=== PATIENT | female | born 1945 | race African-American/Black ===

== ENCOUNTER 2017-10-20 11:28 | Inpatient (IN) | payer OTHER ==
[2017-10-20 12:12] VITALS: BMI 23.6
--- NOTE | 2017-10-20 12:50 | HP ---
COWS - Scale Resting Pulse: 1= IN 81-100 Sweatin=Flushed/Facial Moisture Restless Observation: 3= Extraneous Movement Pupil Size: 2= Moderately Dilated Bone or Joint Aches: 2= Severe Diffuse Aches Runny Nose/ Eye Tearin= Runny Nose/Eyes GI Upset > 30mins: 3= Vomiting/Diarrhea Tremor Observation: 2= Slight Tremor Visible Yawning Observation: 2= >3x During Session Anxiety or Irritability: 2=Irritable/Anxious Goose Flesh Skin: 0=Smooth Skin COWS Score: 21 CIWA Score - CIWA Score Nausea/Vomitin Muscle Tremors: 3 Anxiety: 3 Agitation: 3 Paroxysmal Sweats: 1-Minimal Palms Moist Orientation: 0-Oriented Tacttile Disturbances: 2-Mild Itch/Numbness/Burn Auditory Disturbances: 2-Mild Harshness/Frighten Visual Disturbances: 0-None Headache: 2-Mild CIWA-Ar Total Score: 19 Admission ROS [facility] - HPI Chief Complaint: I AM HERE TO STOP USING HEROIN,ALCOHOL,METHADONE AND OXYCODONE Allergies/Adverse Reactions: Allergies Allergy/AdvReac Type Severity Reaction Status Date / Time Sulfa (Sulfonamide Allergy Verified 10/20/17 12:45 Antibiotics) History of Present Illness: THIS 72 YEARS OLD FEMALE WITH HEROIN,MTD,OXYCODONE,AND ALCOHOL DEPENDENCE SEEKING DETOX,WITHDRAWAL SYMPTOM,LAST TREATMENT 2004 IN [place] HISTORY OF HTN,EMPHYSEMA,,NICOTINE DEPENDENCE,TYPE 2 DM DIET CONTROL HEPATITIS C TREATED WITH HARVONI IN 2016 ANXIETY,DEPRESSION,INSOMNIA LONGEST PERIOD OF SOBRIETY 4 YEARS Exam Limitations: No Limitations - Ebola screening Have you traveled outside of the country in the last 21 days: No Have you been sick,other than usual withdrawal symptoms: No - Review of Systems Constitutional: Chills, Loss of Appetite, Malaise, Night Sweats, Changes in sleep, Weakness, Unintentional Wgt. Loss EENT: reports: Hearing Loss, Nose Congestion Respiratory: reports: No Symptoms reported (EMPHYSEMA), Other Cardiac: reports: No Symptoms Reported GI: reports: Diarrhea, Nausea, Vomiting, Abdominal cramping : reports: No Symptoms Reported Musculoskeletal: reports: Back Pain, Joint Pain, Muscle Pain Integumentary: reports: Dryness Neuro: reports: Headache, Tremors Endocrine: reports: No Symptoms Reported Hematology: reports: No Symptoms Reported Psychiatric: reports: Anxious, Depressed (INSOMNIA) Patient History - Patient Medical History Hx Anemia: No Hx Asthma: No Hx Chronic Obstructive Pulmonary Disease (COPD): Yes (ON ALBUTEROL INHALER) Hx Cancer: No Hx Cardiac Disorders: No Hx Congestive Heart Failure: No Hx Hypertension: Yes (ON MED) Hx Hypercholesterolemia: Yes (ON LIPITOR) Hx Pacemaker: No HX Cerebrovascular Accident: No Hx Seizures: No Hx Dementia: No Hx Diabetes: Yes (ON DIET CONTROL) Hx Gastrointestinal Disorders: No Hx Liver Disease: Yes (HEPATITIS C TREATED) Hx Genitourinary Disorders: No Hx Sexually Transmitted Disorders: No Hx Renal Disease (ESRD): No Hx Thyroid Disease: No Hx Human Immunodeficiency Virus (HIV): No (LAST 2014 NEGATIVE) Hx Hepatitis C: Yes (TREATED WITH HARVONI 2015) Hx Depression: Yes (ANXIETY.INSOMNIA) Hx Suicide Attempt: No Hx Bipolar Disorder: No Hx Schizophrenia: No Other Medical History: NO SUICIDAL,NO HOMICIDAL - Patient Surgical History Other Surgical History: SURGERY OF MILES 3 YEARS AGO - PPD History Previous Implant?: Yes Documented Results: Positive w/o proof PPD to be Administered?: No - Reproductive History Patient is a Female of Child Bearing Age (11 -55 yrs old): No Patient : No - Smoking Cessation Smoking history: Current every day smoker Have you smoked in the past 12 months: Yes Aproximately how many cigarettes per day: 10 Hx Chewing Tobacco Use: No Initiated information on smoking cessation: Yes 'Breaking Loose' booklet given: 10/20/17 - Substance & Tx. History Hx Alcohol Use: Yes Hx Substance Use: Yes Substance Use Type: Alcohol, Heroin, Opiates Hx Substance Use Treatment: Yes (2014) - Substances Abused Heroin Route: Inhalation Frequency: Daily Amount used: 4 BAGS Age of first use: 27 Date of Last Use: 10/19/17 Alcohol Route: Oral Frequency: Daily Amount used: 2 GLASSES OF WINE/4 OF 40 OZS OF BEER Age of first use: 27 Date of Last Use: 10/19/17 METHADONE Route: Oral Frequency: 1-2 times per week Amount used: 30 MGS Age of first use: 71 Date of Last Use: 10/19/17 OXYCODINE Route: Oral Frequency: 1-2 times per week OXYCODONE Route: Oral Frequency: 1-2 times per week Age of first use: 69 Date of Last Use: 10/18/17 Family Disease History - Family Disease History Family History: Denies Family Disease History: Other: Father (), Mother () Admission Physical Exam [facility] - Vital Signs Vital Signs: Vital Signs - 24 hr 10/20/17 12:07 Temperature 98.5 F Pulse Rate 91 H Respiratory 20 Rate Blood Pressure 136/82 - Physical General Appearance: Yes: Moderate Distress, Tremorous, Irritable, Sweating, Anxious HEENTM: Yes: Normal ENT Inspection, ASHER, Pharynx Normal Respiratory: Yes: Within Normal Limits, Lungs Clear, Normal Breath Sounds Neck: Yes: Within Normal Limits, Supple, Trachea in good position Breast: Yes: Breast Exam Deferred Cardiology: Yes: Within Normal Limits, Regular Rhythm, Regular Rate, S1, S2 Abdominal: Yes: Within Normal Limits, Normal Bowel Sounds, Non Tender, Flat, Soft Genitourinary: Yes: Within Normal Limits Back: Yes: Muscle Spasm Musculoskeletal: Yes: Back pain, Joint Stiffness, Muscle Pain Extremities: Yes: Within Normal Limits, Tremors 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: Yes: Within Normal Limits, travel insurance agent II-XII NML intact, Fully Oriented, Alert, Motor Strength 5/5 Integumentary: Yes: Dry Lymphatic: Yes: Within Normal Limits - Diagnostic (1) Opioid dependence with withdrawal Current Visit: Yes Status: Acute (2) Alcohol dependence with uncomplicated withdrawal Current Visit: Yes Status: Acute (3) Emphysema lung Current Visit: Yes Status: Acute (4) Low back pain potentially associated with spinal stenosis Current Visit: Yes Status: Acute (5) Nicotine dependence Current Visit: Yes Status: Acute (6) Insomnia secondary to depression with anxiety Current Visit: Yes Status: Acute (7) DM2 (diabetes mellitus, type 2) Current Visit: Yes Status: Acute (8) Hypercholesterolemia Current Visit: Yes Status: Acute Cleared for Admission [facility] - Detox or Rehab [facility] Level of Care: Medically Managed Detox Regimen/Protocol: Methadone/Librium [facility] Breath Alcohol Content Breath Alcohol Content: 0 Urine Pregancy Test - Result Urine Test Results: Negative- NO Line Present Urine Drug Screen - Results Drug Screen Negative: No Urine Drug Screen Results: OPI-Opiates, MTD-Methadone, OXY-Oxycodone
[2017-10-20] MEDS ORDERED: hydrOXYzine PAMOATE 25 MG CAPSULE (FP) PO PRN (13:25)
[2017-10-20] MEDS ORDERED: P-EPHED 60MG/TRIPROLIDI 2.5MG TABLET PO PRN (13:25)
[2017-10-20] MEDS ORDERED: LOPERAMIDE HCL 2 MG CAPSULE PO PRN (13:25)
[2017-10-20] MEDS ORDERED: METHADONE HCL 10 MG TABLET (FOR DETOX USE ONLY) PO ONE ×2 (13:25→23:00)
[2017-10-20] MEDS ORDERED: MAG HYDROX/AL HYDROX/SIMETH 30 ML UNIT-DOSE CUP PO PRN (13:25)
[2017-10-20] MEDS ORDERED: guaiFENesin/D-METHORPHAN HB 10 ML UNIT-DOSE CUPS PO PRN (13:25)
[2017-10-20] MEDS ORDERED: chlordiazePOXIDE HCL 25 MG CAPSULE PO ONE (13:25)
[2017-10-20] MEDS ORDERED: chlordiazePOXIDE HCL 25 MG CAPSULE PO PRN (13:25)
[2017-10-20] MEDS ORDERED: IBUPROFEN 400 MG TABLET (FP) PO PRN (13:25)
[2017-10-20] MEDS ORDERED: ACETAMINOPHEN 325 MG TABLET (FP) PO PRN (13:25)
[2017-10-20] MEDS ORDERED: MAGNESIUM HYDROX 2400MG/30ML ORAL SUSPENSION 30 ML CUP PO PRN (13:25)
[2017-10-20] MEDS ORDERED: MAGNESIUM CITRATE 300 ML BOTTLE PO PRN (13:25)
[2017-10-20] MEDS ORDERED: MENTHOL/PHENOL 1 EACH UD MM PRN (13:25)
[2017-10-20] MEDS: NICOTINE 14 MG/24 HOURS TOPICAL PATCH TD SCH (15:12)
[2017-10-20] MEDS: chlordiazePOXIDE HCL 25 MG CAPSULE PO SCH ×2 (17:27→22:14)
[2017-10-20 18:58] LABS: URINE APPEARANCE CLEAR; URINE BILIRUBIN NEGATIVE (NEGATIVE); URINE BLOOD 1+ (NEGATIVE); URINE COLOR LTYELLOW; URINE GLUCOSE (UA) NEGATIVE (NEGATIVE); URINE KETONE NEGATIVE (NEGATIVE); URINE LEUK ESTERASE TRACE (NEGATIVE); URINE NITRITE NEGATIVE (NEGATIVE); URINE PROTEIN NEGATIVE (NEGATIVE); URINE UROBILINOGEN NEGATIVE mg/dL (0.2-1.0)
[2017-10-20 19:07] LABS: EPI CELLS RARE /HPF (FEW)
[2017-10-20] MEDS: THIAMINE HCL 100 MG TABLET (FP) PO SCH (22:13)
[2017-10-20] MEDS: ATORVASTATIN CA 10 MG TABLET (FP) PO SCH (22:14)
[2017-10-21] MEDS: chlordiazePOXIDE HCL 25 MG CAPSULE PO SCH (05:13)
--- NOTE | 2017-10-21 07:43 | CONSULT ---
[facility] Psychiatric Consult - Data Date of interview: 10/21/17 Admission source: [facility] Identifying data: This is a 72 ariel sold female with no psychiatric hospitalizatin history looking for detox from Alcohol, Opioids. Substance Abuse History: - Smoking Cessation. Smoking history: Current every day smoker. Have you smoked in the past 12 months: Yes. Aproximately how many cigarettes per day: 10. Hx Chewing Tobacco Use: No. Initiated information on smoking cessation: Yes. 'Breaking Loose' booklet given: 10/20/17. - Substance & Tx. History. Hx Alcohol Use: Yes. Hx Substance Use: Yes. Substance Use Type : Alcohol, Heroin, Opiates. Hx Substance Use Treatment: Yes (2014). - Substances Abused. Heroin. Route: Inhalation. Frequency: Daily. Amount used: 4 BAGS. Age of first use: 27. Date of Last Use: 10/19/17. Alcohol. Route: Oral. Frequency: Daily. Amount used: 2 GLASSES OF WINE/4 OF 40 OZS OF BEER. Age of first use: 27. Date of Last Use: 10/19/17. METHADONE. Route : Oral. Frequency: 1-2 times per week. Amount used: 30 MGS. Age of first use : 71. Date of Last Use: 10/19/17. OXYCODONE. Route: Oral. Frequency: 1-2 times per week. Age of first use: 69. Date of Last Use: 10/18/17 Medical History: Emphysima history, DM-2, MMTP HISTORY Psychiatric History: Patioent reports no history of psychiatric admissions, no mediscations taking prior to admission as well. Physical/Sexual Abuse/Trauma History: Denies Additional Comment: Observation. Detox Unit Care Protocol Mental Status Exam - Mental Status Exam Alert and Oriented to: Person Cognitive Function: Fair Patient Appearance: Unkempt Mood: Sad Affect: Flat Patient Behavior: Sedated Speech Pattern: Delayed Voice Loudness: Mildly Soft/Quiet Thought Process: Circumstantial Thought Disorder: Being Controlled Hallucinations: Denies Suicidal Ideation: Denies Homicidal Ideation: Denies Insight/Judgement: Fair Sleep: Difficulty falling asleep Appetite: Fair Muscle strength/Tone: Mild Hypotonicity Gait/Station: Shuffling Additional Comments: Observation. Detox Unit Care Protocol Psychiatric Findings - Problem List ([place] 1, 2,3) (1) Drug-induced mood disorder Current Visit: Yes Status: Suspected (2) Alcohol dependence with uncomplicated withdrawal Current Visit: Yes Status: Acute (3) Insomnia secondary to depression with anxiety Current Visit: Yes Status: Acute (4) Nicotine dependence Current Visit: Yes Status: Acute (5) Opioid dependence with withdrawal Current Visit: Yes Status: Acute - Initial Treatment Plan Initial Treatment Plan: Observation. Detox Unit Care Protocol
--- NOTE | 2017-10-21 09:18 | PN ---
S CIWA - CIWA Score Nausea/Vomitin-Mild Nausea/No Vomiting Muscle Tremors: 4-Moderate,w/Arms Extend Anxiety: 4-Mod. Anxious/Guarded Agitation: 4-Moderately Restless Paroxysmal Sweats: 1-Minimal Palms Moist Orientation: 0-Oriented Tacttile Disturbances: 1-Very Mild Itch/Numbness Auditory Disturbances: 0-None Visual Disturbances: 0-None Headache: 1-Very Mild CIWA-Ar Total Score: 16 [facility] COWS - Scale Resting Pulse: 0= [place] 80 or Below Sweatin= Chills/Flushing Restless Observation: 3= Extraneous Movement Pupil Size: 1= Pupils >than Normal Bone or Joint Aches: 2= Severe Diffuse Aches Runny Nose/ Eye Tearin= Runny Nose/Eyes GI Upset > 30mins: 2= Nausea/Diarrhea Tremor Observation of Outstretched Hands: 2= Slight Tremor Visible Yawning Observation: 2= >3x During Session Anxiety or Irritability: 2=Irritable/Anxious Goose Flesh Skin: 0=Smooth Skin COWS Score: 17 [facility] Progress Note (SOAP) Subjective: joint ache sweat tremor anxiety GI upset librium gives sensation of nausea wants to begin valium Objective: 10/21/17 09:15 Vital Signs Temperature 97.7 F 10/21/17 06:27 Pulse Rate 63 10/21/17 06:27 Respiratory Rate 20 10/21/17 06:27 Blood Pressure 104/61 10/21/17 06:27 O2 Sat by Pulse Oximetry (%) Laboratory Last Values POC Glucometer 86 UNITS (80-120) 10/21/17 05:18 Urine Color Ltyellow 10/20/17 15:35 Urine Appearance Clear 10/20/17 15:35 Urine pH 6.0 (5.0-8.0) 10/20/17 15:35 Ur Specific [place] 1.010 (1.001-1.035) 10/20/17 15:35 Urine Protein Negative (NEGATIVE) 10/20/17 15:35 Urine Glucose (UA) Negative (NEGATIVE) 10/20/17 15:35 Urine Ketones Negative (NEGATIVE) 10/20/17 15:35 Urine Blood 1+ (NEGATIVE) H 10/20/17 15:35 Urine Nitrite Negative (NEGATIVE) 10/20/17 15:35 Urine Bilirubin Negative (NEGATIVE) 10/20/17 15:35 Urine Urobilinogen Negative mg/dL (0.2-1.0) 10/20/17 15:35 Ur Leukocyte Esterase Trace (NEGATIVE) 10/20/17 15:35 Urine WBC (Auto) 1 /hpf (3-5) 10/20/17 15:35 Urine RBC (Auto) 1 /hpf (0-3) 10/20/17 15:35 Ur Epithelial Cells Rare /HPF (FEW) 10/20/17 15:35 lab noted Assessment: 10/21/17 09:16 withdrawal sx possible discontinue librium Plan: continue detox begin valium regimen
[2017-10-21] MEDS ORDERED: PATIENT'S OWN MEDICATION (NON-FORMULARY) (Meloxicam 7.5 MG) PO SCH (10:00)
[2017-10-21] MEDS ORDERED: METHADONE HCL 10 MG TABLET (FOR DETOX USE ONLY) PO SCH (10:00)
[2017-10-21 10:15] LABS: HEMATOCRIT 41.3 % (32.4-45.2); HEMOGLOBIN 13.4 GM/dL (10.7-15.3); MCH 28.2 pg (25.7-33.7); MCHC 32.5 g/dl (32.0-36.0); MEAN CELL VOLUME 86.9 fl (80-96); MEAN PLT VOLUME 9.3 fl (7.5-11.1); PLATELET COUNT 156 K/MM3 (134-434); RBC 4.75 M/mm3 (3.60-5.2); RDW 15.6 % (11.6-15.6); WHITE BLOOD COUNT 2.8 K/mm3 (4.0-10.0)
[2017-10-21 10:18] LABS: CALCIUM 8.3 mg/dL (8.5-10.1); CHLORIDE 108 mmol/L (98-107); POTASSIUM 3.6 mmol/L (3.5-5.1); SODIUM 142 mmol/L (136-145)
[2017-10-21 10:23] LABS: ALBUMIN 3.2 g/dl (3.4-5.0); ALK PHOS 68 U/L (45-117); ANION GAP 5 (8-16); BILIRUBIN,TOTAL 0.3 mg/dL (0.2-1.0); BLOOD UREA NITROGEN 24 mg/dL (7-18); CO2 29 mmol/L (21-32); CREATININE 1.1 mg/dL (0.55-1.02); GLUCOSE,RANDOM 98 mg/dL (74-106); SGOT/AST 19 U/L (15-37); SGPT/ALT 20 U/L (12-78)
[2017-10-21] MEDS: METOPROLOL TARTRATE 25 MG TABLET (FP) PO SCH (10:29)
[2017-10-21] MEDS: HYDROCHLOROTHIAZIDE 25 MG TABLET (FP) PO SCH (10:29)
[2017-10-21] MEDS: PRENATAL VITAMINS W/ FOLIC ACID TABLET (FP) PO SCH (10:29)
[2017-10-21] MEDS: NICOTINE 14 MG/24 HOURS TOPICAL PATCH TD SCH (11:03)
[2017-10-21] MEDS: LIDOCAINE 5% TOPICAL PATCH TP SCH (11:03)
[2017-10-21] MEDS: diazePAM 5 MG TABLET PO PRN (11:39)
[2017-10-21] MEDS: diazePAM 5 MG TABLET PO SCH ×2 (13:56→22:04)
[2017-10-21] MEDS: PATIENT'S OWN MEDICATION (NON-FORMULARY) (Meloxicam 7.5 MG) PO SCH (14:18)
[2017-10-21] MEDS ORDERED: ALBUTEROL SO4 18 GM HFA INHALER IH SCH (16:00)
[2017-10-21] MEDS ORDERED: ALBUTEROL SO4 18 GM HFA INHALER IH PRN (16:22)
[2017-10-21] MEDS ORDERED: chlordiazePOXIDE HCL 25 MG CAPSULE PO SCH (17:00)
[2017-10-21] MEDS: THIAMINE HCL 100 MG TABLET (FP) PO SCH (22:03)
[2017-10-21] MEDS: BUDESONIDE/FORMETEROL FUMARATE 80/4.5 mcg INHALER IH SCH (22:03)
[2017-10-21] MEDS: ATORVASTATIN CA 10 MG TABLET (FP) PO SCH (22:04)
[2017-10-21] MEDS: LIDOCAINE PATCH REMOVAL MC SCH (22:04)
--- NOTE | 2017-10-21 23:34 | EKG ---
Test Reason : Blood Pressure : / mmHG Vent. Rate : 068 BPM Atrial Rate : 068 BPM P-R Int : 172 ms QRS Dur : 146 ms QT Int : 428 ms P-R-T Axes : 064 -16 -05 degrees QTc Int : 455 ms NORMAL SINUS RHYTHM RIGHT BUNDLE BRANCH BLOCK T WAVE ABNORMALITY, CONSIDER LATERAL ISCHEMIA ABNORMAL ECG NO PREVIOUS ECGS AVAILABLE Confirmed by FREDERIC ALTAMIRANO MD ([id number]) on 10/21/2017 11:33:29 PM Referred By: Confirmed By:FREDERIC ALTAMIRANO MD
[2017-10-22] MEDS: diazePAM 5 MG TABLET PO SCH ×4 (08:28→22:19)
--- NOTE | 2017-10-22 09:56 | PN ---
S CIWA - CIWA Score Nausea/Vomitin-Mild Nausea/No Vomiting Muscle Tremors: 4-Moderate,w/Arms Extend Anxiety: 4-Mod. Anxious/Guarded Agitation: 3 Paroxysmal Sweats: 1-Minimal Palms Moist Orientation: 0-Oriented Tacttile Disturbances: 0-None Auditory Disturbances: 0-None Visual Disturbances: 0-None Headache: 0-None Present CIWA-Ar Total Score: 13 [facility] COWS - Scale Resting Pulse: 0= [place] 80 or Below Sweatin= Chills/Flushing Restless Observation: 3= Extraneous Movement Pupil Size: 0= Normal to Room Light Bone or Joint Aches: 2= Severe Diffuse Aches Runny Nose/ Eye Tearin= Runny Nose/Eyes GI Upset > 30mins: 2= Nausea/Diarrhea Tremor Observation of Outstretched Hands: 2= Slight Tremor Visible Yawning Observation: 0= None Anxiety or Irritability: 2=Irritable/Anxious Goose Flesh Skin: 0=Smooth Skin COWS Score: 14 S Progress Note (SOAP) Subjective: joint aches tremor sweat anxiety restlessness irritability agitation Objective: 10/22/17 09:55 Vital Signs Temperature 97.7 F 10/22/17 06:24 Pulse Rate 65 10/22/17 06:24 Respiratory Rate 16 10/22/17 06:24 Blood Pressure 111/66 10/22/17 06:24 O2 Sat by Pulse Oximetry (%) Laboratory Last Values WBC 2.8 K/mm3 (4.0-10.0) L 10/21/17 07:00 RBC 4.75 M/mm3 (3.60-5.2) 10/21/17 07:00 Hgb 13.4 GM/dL (10.7-15.3) 10/21/17 07:00 Hct 41.3 % (32.4-45.2) 10/21/17 07:00 MCV 86.9 fl (80-96) 10/21/17 07:00 MCH 28.2 pg (25.7-33.7) 10/21/17 07:00 MCHC 32.5 g/dl (32.0-36.0) 10/21/17 07:00 RDW 15.6 % (11.6-15.6) 10/21/17 07:00 Plt Count 156 K/MM3 (134-434) 10/21/17 07:00 MPV 9.3 fl (7.5-11.1) 10/21/17 07:00 Sodium 142 mmol/L (136-145) 10/21/17 07:00 Potassium 3.6 mmol/L (3.5-5.1) 10/21/17 07:00 Chloride 108 mmol/L (98-107) H 10/21/17 07:00 Carbon Dioxide 29 mmol/L (21-32) 10/21/17 07:00 Anion Gap 5 (8-16) L 10/21/17 07:00 BUN 24 mg/dL (7-18) H 10/21/17 07:00 Creatinine 1.1 mg/dL (0.55-1.02) H 10/21/17 07:00 Creat Clearance w eGFR 49.10 (>60) 10/21/17 07:00 POC Glucometer 79 UNITS (80-120) 10/22/17 06:46 Random Glucose 98 mg/dL (74-106) 10/21/17 07:00 Calcium 8.3 mg/dL (8.5-10.1) L 10/21/17 07:00 Total Bilirubin 0.3 mg/dL (0.2-1.0) 10/21/17 07:00 AST 19 U/L (15-37) 10/21/17 07:00 ALT 20 U/L (12-78) 10/21/17 07:00 Alkaline Phosphatase 68 U/L (45-117) 10/21/17 07:00 Total Protein 7.0 g/dl (6.4-8.2) 10/21/17 07:00 Albumin 3.2 g/dl (3.4-5.0) L 10/21/17 07:00 Urine Color Ltyellow 10/20/17 15:35 Urine Appearance Clear 10/20/17 15:35 Urine pH 6.0 (5.0-8.0) 10/20/17 15:35 Ur Specific [place] 1.010 (1.001-1.035) 10/20/17 15:35 Urine Protein Negative (NEGATIVE) 10/20/17 15:35 Urine Glucose (UA) Negative (NEGATIVE) 10/20/17 15:35 Urine Ketones Negative (NEGATIVE) 10/20/17 15:35 Urine Blood 1+ (NEGATIVE) H 10/20/17 15:35 Urine Nitrite Negative (NEGATIVE) 10/20/17 15:35 Urine Bilirubin Negative (NEGATIVE) 10/20/17 15:35 Urine Urobilinogen Negative mg/dL (0.2-1.0) 10/20/17 15:35 Ur Leukocyte Esterase Trace (NEGATIVE) 10/20/17 15:35 Urine WBC (Auto) 1 /hpf (3-5) 10/20/17 15:35 Urine RBC (Auto) 1 /hpf (0-3) 10/20/17 15:35 Ur Epithelial Cells Rare /HPF (FEW) 10/20/17 15:35 RPR Titer Nonreactive (NONREACTIVE) 10/21/17 07:00 lab noted Assessment: 10/22/17 09:55 withdrawal sx Plan: continue detox
[2017-10-22] MEDS: METOPROLOL TARTRATE 25 MG TABLET (FP) PO SCH (10:54)
[2017-10-22] MEDS: METHOCARBAMOL 500 MG TABLET PO PRN (10:54)
[2017-10-22] MEDS: PRENATAL VITAMINS W/ FOLIC ACID TABLET (FP) PO SCH (10:54)
[2017-10-22] MEDS: METHADONE HCL 5 MG TABLET (FOR DETOX USE ONLY) PO SCH (10:54)
[2017-10-22] MEDS: BUDESONIDE/FORMETEROL FUMARATE 80/4.5 mcg INHALER IH SCH ×2 (10:54→22:18)
[2017-10-22] MEDS: HYDROCHLOROTHIAZIDE 25 MG TABLET (FP) PO SCH (10:54)
[2017-10-22] MEDS: PATIENT'S OWN MEDICATION (NON-FORMULARY) (Meloxicam 7.5 MG) PO SCH (10:56)
[2017-10-22] MEDS: NICOTINE 14 MG/24 HOURS TOPICAL PATCH TD SCH (10:59)
[2017-10-22] MEDS: LIDOCAINE 5% TOPICAL PATCH TP SCH (11:00)
[2017-10-22] MEDS ORDERED: chlordiazePOXIDE 5 MG CAPSULE PO SCH (17:00)
[2017-10-22] MEDS: diazePAM 5 MG TABLET PO PRN (20:03)
[2017-10-22] MEDS: LIDOCAINE PATCH REMOVAL MC SCH (22:18)
[2017-10-22] MEDS: THIAMINE HCL 100 MG TABLET (FP) PO SCH (22:19)
[2017-10-22] MEDS: ATORVASTATIN CA 10 MG TABLET (FP) PO SCH (22:19)
[2017-10-22] MEDS ORDERED: ONDANSETRON *ODT* 4 MG TABLET SL PRN (22:25)
[2017-10-22] MEDS ORDERED: METOPROLOL TARTRATE 25 MG TABLET (FP) PO ONE (22:30)
--- NOTE | 2017-10-22 22:30 | PN ---
S Progress Note Note: Patient c/o nausea and hx of GERD. Reports out patient takes nexium 20mg qd. Patient medically stable, in no acute distress, ambulating. Orders Zofran and Protonix continue to monitor
[2017-10-22] MEDS: PANTOPRAZOLE 20 MG TABLET (FP) PO SCH (22:48)
[2017-10-23] MEDS: BUDESONIDE/FORMETEROL FUMARATE 80/4.5 mcg INHALER IH SCH ×2 (10:23→22:24)
[2017-10-23] MEDS: PRENATAL VITAMINS W/ FOLIC ACID TABLET (FP) PO SCH (10:23)
[2017-10-23] MEDS: PANTOPRAZOLE 20 MG TABLET (FP) PO SCH (10:24)
[2017-10-23] MEDS: METOPROLOL TARTRATE 25 MG TABLET (FP) PO SCH (10:24)
[2017-10-23] MEDS: diazePAM 5 MG TABLET PO SCH ×2 (10:24→22:25)
[2017-10-23] MEDS: LIDOCAINE 5% TOPICAL PATCH TP SCH (10:24)
[2017-10-23] MEDS: METHADONE HCL 5 MG TABLET (FOR DETOX USE ONLY) PO SCH (10:24)
[2017-10-23] MEDS: HYDROCHLOROTHIAZIDE 25 MG TABLET (FP) PO SCH (10:24)
[2017-10-23] MEDS: NICOTINE 14 MG/24 HOURS TOPICAL PATCH TD SCH (10:25)
[2017-10-23] MEDS: PATIENT'S OWN MEDICATION (NON-FORMULARY) (Meloxicam 7.5 MG) PO SCH (10:25)
--- NOTE | 2017-10-23 12:30 | PN ---
[facility] Progress Note (SOAP) Subjective: GI distress joint aches sweat irritable anxiety Objective: 10/23/17 12:29 Vital Signs Temperature 97.9 F 10/23/17 10:30 Pulse Rate 79 10/23/17 10:30 Respiratory Rate 18 10/23/17 10:30 Blood Pressure 145/83 10/23/17 10:30 O2 Sat by Pulse Oximetry (%) Laboratory Last Values WBC 2.8 K/mm3 (4.0-10.0) L 10/21/17 07:00 RBC 4.75 M/mm3 (3.60-5.2) 10/21/17 07:00 Hgb 13.4 GM/dL (10.7-15.3) 10/21/17 07:00 Hct 41.3 % (32.4-45.2) 10/21/17 07:00 MCV 86.9 fl (80-96) 10/21/17 07:00 MCH 28.2 pg (25.7-33.7) 10/21/17 07:00 MCHC 32.5 g/dl (32.0-36.0) 10/21/17 07:00 RDW 15.6 % (11.6-15.6) 10/21/17 07:00 Plt Count 156 K/MM3 (134-434) 10/21/17 07:00 MPV 9.3 fl (7.5-11.1) 10/21/17 07:00 Sodium 142 mmol/L (136-145) 10/21/17 07:00 Potassium 3.6 mmol/L (3.5-5.1) 10/21/17 07:00 Chloride 108 mmol/L (98-107) H 10/21/17 07:00 Carbon Dioxide 29 mmol/L (21-32) 10/21/17 07:00 Anion Gap 5 (8-16) L 10/21/17 07:00 BUN 24 mg/dL (7-18) H 10/21/17 07:00 Creatinine 1.1 mg/dL (0.55-1.02) H 10/21/17 07:00 Creat Clearance w eGFR 49.10 (>60) 10/21/17 07:00 POC Glucometer 82 UNITS (80-120) 10/23/17 05:58 Random Glucose 98 mg/dL (74-106) 10/21/17 07:00 Calcium 8.3 mg/dL (8.5-10.1) L 10/21/17 07:00 Total Bilirubin 0.3 mg/dL (0.2-1.0) 10/21/17 07:00 AST 19 U/L (15-37) 10/21/17 07:00 ALT 20 U/L (12-78) 10/21/17 07:00 Alkaline Phosphatase 68 U/L (45-117) 10/21/17 07:00 Total Protein 7.0 g/dl (6.4-8.2) 10/21/17 07:00 Albumin 3.2 g/dl (3.4-5.0) L 10/21/17 07:00 Urine Color Ltyellow 10/20/17 15:35 Urine Appearance Clear 10/20/17 15:35 Urine pH 6.0 (5.0-8.0) 10/20/17 15:35 Ur Specific [place] 1.010 (1.001-1.035) 10/20/17 15:35 Urine Protein Negative (NEGATIVE) 10/20/17 15:35 Urine Glucose (UA) Negative (NEGATIVE) 10/20/17 15:35 Urine Ketones Negative (NEGATIVE) 10/20/17 15:35 Urine Blood 1+ (NEGATIVE) H 10/20/17 15:35 Urine Nitrite Negative (NEGATIVE) 10/20/17 15:35 Urine Bilirubin Negative (NEGATIVE) 10/20/17 15:35 Urine Urobilinogen Negative mg/dL (0.2-1.0) 10/20/17 15:35 Ur Leukocyte Esterase Trace (NEGATIVE) 10/20/17 15:35 Urine WBC (Auto) 1 /hpf (3-5) 10/20/17 15:35 Urine RBC (Auto) 1 /hpf (0-3) 10/20/17 15:35 Ur Epithelial Cells Rare /HPF (FEW) 10/20/17 15:35 RPR Titer Nonreactive (NONREACTIVE) 10/21/17 07:00 lab noted Assessment: 10/23/17 12:30 withdrawal sx Plan: continue detox
[2017-10-23] MEDS: METHOCARBAMOL 500 MG TABLET PO PRN ×2 (14:44→22:25)
[2017-10-23] MEDS ORDERED: chlordiazePOXIDE HCL 10 MG CAPSULE PO SCH (17:00)
[2017-10-23] MEDS: diazePAM 5 MG TABLET PO PRN (19:28)
[2017-10-23] MEDS: ATORVASTATIN CA 10 MG TABLET (FP) PO SCH (22:24)
[2017-10-23] MEDS: LIDOCAINE PATCH REMOVAL MC SCH (22:24)
[2017-10-23] MEDS: THIAMINE HCL 100 MG TABLET (FP) PO SCH (22:25)
[2017-10-23] MEDS ORDERED: IBUPROFEN 400 MG TABLET (FP) PO PRN (22:25)
--- NOTE | 2017-10-23 22:31 | PN ---
S Progress Note (SOAP) Subjective: " I have back pain and will like some oxy for my pain" Objective: 10/23/17 22:27 Vital Signs Temperature 98.3 F 10/23/17 18:36 Pulse Rate 80 10/23/17 18:36 Respiratory Rate 20 02 18:36 Blood Pressure 103/65 10/23/17 18:36 O2 Sat by Pulse Oximetry (%) Laboratory Last Values WBC 2.8 K/mm3 (4.0-10.0) L 10/21/17 07:00 RBC 4.75 M/mm3 (3.60-5.2) 10/21/17 07:00 Hgb 13.4 GM/dL (10.7-15.3) 10/21/17 07:00 Hct 41.3 % (32.4-45.2) 10/21/17 07:00 MCV 86.9 fl (80-96) 10/21/17 07:00 MCH 28.2 pg (25.7-33.7) 10/21/17 07:00 MCHC 32.5 g/dl (32.0-36.0) 10/21/17 07:00 RDW 15.6 % (11.6-15.6) 10/21/17 07:00 Plt Count 156 K/MM3 (134-434) 10/21/17 07:00 MPV 9.3 fl (7.5-11.1) 10/21/17 07:00 Sodium 142 mmol/L (136-145) 10/21/17 07:00 Potassium 3.6 mmol/L (3.5-5.1) 10/21/17 07:00 Chloride 108 mmol/L (98-107) H 10/21/17 07:00 Carbon Dioxide 29 mmol/L (21-32) 10/21/17 07:00 Anion Gap 5 (8-16) L 10/21/17 07:00 BUN 24 mg/dL (7-18) H 10/21/17 07:00 Creatinine 1.1 mg/dL (0.55-1.02) H 10/21/17 07:00 Creat Clearance w eGFR 49.10 (>60) 10/21/17 07:00 POC Glucometer 107 UNITS (80-120) 10/23/17 16:30 Random Glucose 98 mg/dL (74-106) 10/21/17 07:00 Calcium 8.3 mg/dL (8.5-10.1) L 10/21/17 07:00 Total Bilirubin 0.3 mg/dL (0.2-1.0) 10/21/17 07:00 AST 19 U/L (15-37) 10/21/17 07:00 ALT 20 U/L (12-78) 10/21/17 07:00 Alkaline Phosphatase 68 U/L (45-117) 10/21/17 07:00 Total Protein 7.0 g/dl (6.4-8.2) 10/21/17 07:00 Albumin 3.2 g/dl (3.4-5.0) L 10/21/17 07:00 Urine Color Ltyellow 10/20/17 15:35 Urine Appearance Clear 10/20/17 15:35 Urine pH 6.0 (5.0-8.0) 10/20/17 15:35 Ur Specific [place] 1.010 (1.001-1.035) 10/20/17 15:35 Urine Protein Negative (NEGATIVE) 10/20/17 15:35 Urine Glucose (UA) Negative (NEGATIVE) 10/20/17 15:35 Urine Ketones Negative (NEGATIVE) 10/20/17 15:35 Urine Blood 1+ (NEGATIVE) H 10/20/17 15:35 Urine Nitrite Negative (NEGATIVE) 10/20/17 15:35 Urine Bilirubin Negative (NEGATIVE) 10/20/17 15:35 Urine Urobilinogen Negative mg/dL (0.2-1.0) 10/20/17 15:35 Ur Leukocyte Esterase Trace (NEGATIVE) 10/20/17 15:35 Urine WBC (Auto) 1 /hpf (3-5) 10/20/17 15:35 Urine RBC (Auto) 1 /hpf (0-3) 10/20/17 15:35 Ur Epithelial Cells Rare /HPF (FEW) 10/20/17 15:35 RPR Titer Nonreactive (NONREACTIVE) 10/21/17 07:00 Patient evaluated at the bedside Patient AOx3, in no apparent distress Ambulating without any deficits Negative neuro symptoms Assessment: 10/23/17 22:29 lumbago Plan: Continue detox Ibuprofen 400mg q6h repeat U/A Continue to monitor
[2017-10-24] MEDS: METHOCARBAMOL 500 MG TABLET PO PRN ×2 (03:02→20:06)
--- NOTE | 2017-10-24 09:33 | PN ---
[facility] Progress Note (SOAP) Subjective: report feeling better, alert oriented x3 no sweat less tremor joint aches Objective: 10/24/17 09:32 Vital Signs Temperature 96.3 F L 10/24/17 06:00 Pulse Rate 90 10/24/17 06:00 Respiratory Rate 20 10/24/17 06:00 Blood Pressure 153/93 10/24/17 06:00 O2 Sat by Pulse Oximetry (%) vital signs 134/79, 78 16 96.5 10/24/17 09:32 Laboratory Last Values WBC 2.8 K/mm3 (4.0-10.0) L 10/21/17 07:00 RBC 4.75 M/mm3 (3.60-5.2) 10/21/17 07:00 Hgb 13.4 GM/dL (10.7-15.3) 10/21/17 07:00 Hct 41.3 % (32.4-45.2) 10/21/17 07:00 MCV 86.9 fl (80-96) 10/21/17 07:00 MCH 28.2 pg (25.7-33.7) 10/21/17 07:00 MCHC 32.5 g/dl (32.0-36.0) 10/21/17 07:00 RDW 15.6 % (11.6-15.6) 10/21/17 07:00 Plt Count 156 K/MM3 (134-434) 10/21/17 07:00 MPV 9.3 fl (7.5-11.1) 10/21/17 07:00 Sodium 142 mmol/L (136-145) 10/21/17 07:00 Potassium 3.6 mmol/L (3.5-5.1) 10/21/17 07:00 Chloride 108 mmol/L (98-107) H 10/21/17 07:00 Carbon Dioxide 29 mmol/L (21-32) 10/21/17 07:00 Anion Gap 5 (8-16) L 10/21/17 07:00 BUN 24 mg/dL (7-18) H 10/21/17 07:00 Creatinine 1.1 mg/dL (0.55-1.02) H 10/21/17 07:00 Creat Clearance w eGFR 49.10 (>60) 10/21/17 07:00 POC Glucometer 83 UNITS (80-120) 10/24/17 06:29 Random Glucose 98 mg/dL (74-106) 10/21/17 07:00 Calcium 8.3 mg/dL (8.5-10.1) L 10/21/17 07:00 Total Bilirubin 0.3 mg/dL (0.2-1.0) 10/21/17 07:00 AST 19 U/L (15-37) 10/21/17 07:00 ALT 20 U/L (12-78) 10/21/17 07:00 Alkaline Phosphatase 68 U/L (45-117) 10/21/17 07:00 Total Protein 7.0 g/dl (6.4-8.2) 10/21/17 07:00 Albumin 3.2 g/dl (3.4-5.0) L 10/21/17 07:00 Urine Color Ltyellow 10/20/17 15:35 Urine Appearance Clear 10/20/17 15:35 Urine pH 6.0 (5.0-8.0) 10/20/17 15:35 Ur Specific [place] 1.010 (1.001-1.035) 10/20/17 15:35 Urine Protein Negative (NEGATIVE) 10/20/17 15:35 Urine Glucose (UA) Negative (NEGATIVE) 10/20/17 15:35 Urine Ketones Negative (NEGATIVE) 10/20/17 15:35 Urine Blood 1+ (NEGATIVE) H 10/20/17 15:35 Urine Nitrite Negative (NEGATIVE) 10/20/17 15:35 Urine Bilirubin Negative (NEGATIVE) 10/20/17 15:35 Urine Urobilinogen Negative mg/dL (0.2-1.0) 10/20/17 15:35 Ur Leukocyte Esterase Trace (NEGATIVE) 10/20/17 15:35 Urine WBC (Auto) 1 /hpf (3-5) 10/20/17 15:35 Urine RBC (Auto) 1 /hpf (0-3) 10/20/17 15:35 Ur Epithelial Cells Rare /HPF (FEW) 10/20/17 15:35 RPR Titer Nonreactive (NONREACTIVE) 10/21/17 07:00 lab noted Assessment: 10/24/17 09:32 mild withdrawal sx Plan: medically supervised detox
[2017-10-24] MEDS ORDERED: METHADONE HCL 10 MG TABLET (FOR DETOX USE ONLY) PO SCH (10:00)
[2017-10-24] MEDS ORDERED: PATIENT'S OWN MEDICATION (NON-FORMULARY) (Meloxicam [Mobic] 7.5 MG) PO SCH (10:00)
[2017-10-24] MEDS: PRENATAL VITAMINS W/ FOLIC ACID TABLET (FP) PO SCH (10:12)
[2017-10-24] MEDS: HYDROCHLOROTHIAZIDE 25 MG TABLET (FP) PO SCH (10:12)
[2017-10-24] MEDS: PANTOPRAZOLE 20 MG TABLET (FP) PO SCH (10:12)
[2017-10-24] MEDS: METOPROLOL TARTRATE 25 MG TABLET (FP) PO SCH (10:12)
[2017-10-24] MEDS: LIDOCAINE 5% TOPICAL PATCH TP SCH (10:13)
[2017-10-24] MEDS: BUDESONIDE/FORMETEROL FUMARATE 80/4.5 mcg INHALER IH SCH ×2 (10:13→22:12)
[2017-10-24] MEDS: diazePAM 5 MG TABLET PO SCH ×2 (10:13→22:12)
[2017-10-24] MEDS: NICOTINE 14 MG/24 HOURS TOPICAL PATCH TD SCH (10:14)
[2017-10-24 14:21] LABS: URINE APPEARANCE CLEAR; URINE BILIRUBIN NEGATIVE (NEGATIVE); URINE BLOOD NEGATIVE (NEGATIVE); URINE COLOR YELLOW; URINE GLUCOSE (UA) NEGATIVE (NEGATIVE); URINE KETONE NEGATIVE (NEGATIVE); URINE NITRITE NEGATIVE (NEGATIVE); URINE PROTEIN NEGATIVE (NEGATIVE); URINE UROBILINOGEN NEGATIVE mg/dL (0.2-1.0)
[2017-10-24 14:29] LABS: URINE LEUK ESTERASE 3+ (NEGATIVE)
[2017-10-24 14:32] LABS: EPI CELLS RARE /HPF (FEW); URINE HYALINE CAST 1 /lpf; URINE MUCUS RARE
[2017-10-24] MEDS: THIAMINE HCL 100 MG TABLET (FP) PO SCH (22:11)
[2017-10-24] MEDS: ATORVASTATIN CA 10 MG TABLET (FP) PO SCH (22:11)
[2017-10-24] MEDS: LIDOCAINE PATCH REMOVAL MC SCH (23:11)
[2017-10-25] MEDS ORDERED: METHADONE HCL 5 MG TABLET (FOR DETOX USE ONLY) PO SCH (06:00)
[2017-10-25 06:29] VITALS: BP 148/97; PULSE 71; TEMP 97.5
--- NOTE | 2017-10-25 09:39 | DS ---
[facility] Detox Discharge Summary Admission Date: 10/20/17 Discharge Date: 10/25/17 - History Present History: Alcohol Dependence, Opioid Dependence - Physical Exam Results Vital Signs: Vital Signs Temperature 97.5 F L 10/25/17 06:00 Pulse Rate 71 10/25/17 06:00 Respiratory Rate 16 10/25/17 06:00 Blood Pressure 148/97 10/25/17 06:00 O2 Sat by Pulse Oximetry (%) - Treatment Hospital Course: Detox Protocol Followed, Detoxed Safely, Responded well, Discharged Condition Good, Rehab Referral Accepted - Medication Discharge Medications: Ambulatory Orders Atorvastatin Ca [Lipitor] 10 mg PO HS 10/20/17 Hydrochlorothiazide [Hctz -] 25 mg PO DAILY 10/20/17 Meloxicam [Mobic (Nf) -] 7.5 mg PO DAILY 10/20/17 Metoprolol Tartrate [Lopressor -] 25 mg PO DAILY 10/20/17 Albuterol Sulfate Inhaler - [Ventolin Hfa Inhaler -] 2 inh PO Q4H PRN 10/21/17 Pantoprazole Sodium [Protonix -] 40 mg PO DAILY 10/23/17 Meloxicam [Mobic] 7.5 mg PO DAILY 10/24/17 - Diagnosis (1) Alcohol dependence with uncomplicated withdrawal Current Visit: Yes Status: Chronic (2) DM2 (diabetes mellitus, type 2) Current Visit: Yes Status: Chronic Qualifiers: Diabetes mellitus complication status: without complication (3) Emphysema lung Current Visit: Yes Status: Acute (4) GERD (gastroesophageal reflux disease) Current Visit: Yes Status: Acute (5) Hypercholesterolemia Current Visit: Yes Status: Acute (6) Insomnia secondary to depression with anxiety Current Visit: Yes Status: Acute (7) Low back pain potentially associated with spinal stenosis Current Visit: Yes Status: Acute (8) Nicotine dependence Current Visit: Yes Status: Chronic Qualifiers: Nicotine product type: cigarettes Substance use status: uncomplicated Qualified Code(s): F17.210 - Nicotine dependence, cigarettes, uncomplicated (9) Opioid dependence with withdrawal Current Visit: Yes Status: Acute (10) Drug-induced mood disorder Current Visit: Yes Status: Suspected - AMA Did Patient Leave Against Medical Advice: No
[2017-10-25] MEDS: HYDROCHLOROTHIAZIDE 25 MG TABLET (FP) PO SCH (09:43)
[2017-10-25] MEDS: PANTOPRAZOLE 20 MG TABLET (FP) PO SCH (09:43)
[2017-10-25] MEDS: METOPROLOL TARTRATE 25 MG TABLET (FP) PO SCH (09:43)
[2017-10-25] MEDS: PRENATAL VITAMINS W/ FOLIC ACID TABLET (FP) PO SCH (09:43)
[2017-10-25] MEDS ORDERED: diazePAM 5 MG TABLET PO SCH (10:00)
== END 2017-10-25 10:20 | disposition home or self-care (01) | DRG 897 ==
LOC: YASAS 11:28 → Y6N 13:13
PROVIDERS: ADMIT Internal Medicine; ATTEND Internal Medicine
PROC: HZ2ZZZZ Detoxification Services for Substance Abuse Treatment (ICD-10-PCS; principal; 2017-10-20)
DX: F11.23 Opioid dependence with withdrawal (principal); F19.20 Other psychoactive substance dependence, uncomplicated; F19.282 Other psychoactive substance dependence with psychoactive substance-induced sleep disorder; F10.230 Alcohol dependence with withdrawal, uncomplicated; F17.210 Nicotine dependence, cigarettes, uncomplicated; F19.24 Other psychoactive substance dependence with psychoactive substance-induced mood disorder; J43.8 Other emphysema; G47.00 Insomnia, unspecified; E78.00 Pure hypercholesterolemia, unspecified; K21.9 Gastro-esophageal reflux disease without esophagitis
CPT/HCPCS: 36415; 71045-TC-FY; 80053; 81003; 81015; 82962; 85027; 86593; 93005; 93010

== ENCOUNTER 2019-01-24 18:40 | Inpatient (IN) | payer OTHER ==
--- NOTE | 2019-01-24 21:19 | HP ---
COWS - Scale Resting Pulse: 1= [place] 81-100 Sweatin=Flushed/Facial Moisture Restless Observation: 1= Difficult to Sit Still Pupil Size: 1= Pupils >than Normal Bone or Joint Aches: 1= Mild Discomfort Runny Nose/ Eye Tearin= Nasal Congestion GI Upset > 30mins: 2= Nausea/Diarrhea Tremor Observation: 2= Slight Tremor Visible Yawning Observation: 0= None Anxiety or Irritability: 1=Feels Anxious/Irritable Goose Flesh Skin: 0=Smooth Skin COWS Score: 12 CIWA Score Nausea/Vomitin Muscle Tremors: 2 Anxiety: 2 Agitation: 2 Paroxysmal Sweats: 2 Orientation: 0-Oriented Tacttile Disturbances: 2-Mild Itch/Numbness/Burn Auditory Disturbances: 2-Mild Harshness/Frighten Visual Disturbances: 2-Mild Sensitivity Headache: 2-Mild CIWA-Ar Total Score: 18 - Admission Criteria OASAS Guidelines: Admission for Medically Managed Detox: Requires at least one of the followin. CIWA greater than 12 2. Seizures within the past 24 hours 3. Delirium tremens within the past 24 hours 4. Hallucinations within the past 24 hours 5. Acute intervention needed for co occurring medical disorder 6. Acute intervention needed for co occurring psychiatric disorder 7. Severe withdrawal that cannot be handled at a lower level of care (continued vomiting, continued diarrhea, abnormal vital signs) requiring intravenous medication and/or fluids 8. Admission ROS S - HPI Chief Complaint: DEPENDENT ON HEROIN, ETOH, OXYCODONE AND COCAINE Allergies/Adverse Reactions: Allergies Allergy/AdvReac Type Severity Reaction Status Date / Time Sulfa (Sulfonamide Allergy Verified 10/20/17 12:45 Antibiotics) History of Present Illness: THE PT. IS REQUESTING ADMISSION TO THE DETOX UNIT AND CAME FOR MEDICAL CLEARANCE AND H AND PE Exam Limitations: No Limitations - Ebola screening Have you traveled outside of the country in the last 21 days: No Have you had contact with anyone from an Ebola affected area: No Have you been sick,other than usual withdrawal symptoms: No Do you have a fever: No - Review of Systems Constitutional: See HPI, Malaise, Weakness EENT: reports: See HPI Respiratory: reports: See HPI, SOB with Exertion, Wheezing Cardiac: reports: See HPI GI: reports: See HPI, Nausea, Abdominal cramping : reports: No Symptoms Reported, See HPI Musculoskeletal: reports: See HPI, Muscle Pain, Muscle Weakness Integumentary: reports: See HPI, Sweating Neuro: reports: See HPI, Headache, Tremors, Weakness Endocrine: reports: See HPI Hematology: reports: See HPI Psychiatric: reports: Judgement Intact, Orientated x3, Anxious, Depressed Patient History - Patient Medical History Hx Anemia: No Hx Asthma: No Hx Chronic Obstructive Pulmonary Disease (COPD): Yes (ON ALBUTEROL INHALER) Hx Cancer: No Hx Cardiac Disorders: No Hx Congestive Heart Failure: No Hx Hypertension: Yes (ON MED) Hx Hypercholesterolemia: Yes (ON LIPITOR) Hx Pacemaker: No HX Cerebrovascular Accident: No Hx Seizures: No Hx Dementia: No Hx Diabetes: Yes (ON DIET CONTROL) Hx Gastrointestinal Disorders: Yes (GERD) Hx Liver Disease: Yes (HEPATITIS C TREATED) Hx Genitourinary Disorders: No Hx Sexually Transmitted Disorders: No Hx Renal Disease (ESRD): No Hx Thyroid Disease: No Hx Human Immunodeficiency Virus (HIV): No (LAST 2014 NEGATIVE) Hx Hepatitis C: Yes (TREATED WITH HARVONI 2015) Hx Depression: Yes (ANXIETY.INSOMNIA) Hx Suicide Attempt: No Hx Bipolar Disorder: No Hx Schizophrenia: No - Patient Surgical History Past Surgical History: Yes Hx Neurologic Surgery: No Hx Cataract Extraction: No Hx Cardiac Surgery: No Hx Lung Surgery: No Hx Breast Surgery: No Hx Breast Biopsy: No Hx Abdominal Surgery: No Hx Appendectomy: No Hx Cholecystectomy: No Hx Genitourinary Surgery: No Hx Section: No Hx Orthopedic Surgery: No Other Surgical History: SURGERY OF MILES 3 YEARS AGO - Reproductive History Patient is a Female of Child Bearing Age (11 -55 yrs old): No LMP comment: LMP IN 1994 Patient : No - Smoking Cessation Smoking history: Current every day smoker Have you smoked in the past 12 months: Yes Aproximately how many cigarettes per day: 10 Hx Chewing Tobacco Use: No Initiated information on smoking cessation: Yes 'Breaking Loose' booklet given: 01/24/19 - Substances abused Heroin Substance route: Inhalation Frequency: Daily Amount used: 6 B/D Age of first use: 23 Date of last use: 01/24/19 Alcohol Substance route: Oral Frequency: Daily Amount used: BEER 2X6 PKS/D Age of first use: 23 Date of last use: 01/24/19 Cocaine Substance route: Inhalation Frequency: Daily Amount used: $20/D Age of first use: 23 Date of last use: 01/23/19 Oxycontin Other (specify): OXYCODONE Substance route: Oral Frequency: Daily Amount used: 30 MGS. Age of first use: 69 Date of last use: 01/24/19 Family Disease History - Family Disease History Family Disease History: Other: Father (), Mother () Admission Physical Exam S - Physical General Appearance: Yes: No Apparent Distress, Appropriately Dressed, Thin, Sweating, Anxious HEENTM: Yes: Hearing grossly Normal, Normocephalic, Normal Voice, ASHER, Pharynx Normal Respiratory: Yes: Chest Non-Tender, Lungs Clear, Normal Breath Sounds, No Respiratory Distress, No Accessory Muscle Use Neck: Yes: No masses,lesions,Nodules, Supple, Trachea in good position Breast: Yes: Breast Exam Deferred, Axillae without masses Cardiology: Yes: Regular Rhythm, S1, S2, Tachycardia Abdominal: Yes: Normal Bowel Sounds, Non Tender, Soft, Protuberent Back: Yes: Normal Inspection, Decreased Range of Motion Musculoskeletal: Yes: full range of Motion, Pelvis Stable, Muscle Pain, Muscle weakness Extremities: Yes: Normal Capillary Refill, Normal Range of Motion, Non-Tender, Tremors, Swelling 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: 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: 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 NML intact, Fully Oriented, Alert, Motor Strength 5/5, Normal Response Integumentary: Yes: Normal Color, Warm, Moist Lymphatic: Yes: Within Normal Limits - Diagnostic (1) HTN (hypertension) Current Visit: Yes Status: Acute Qualifiers: Hypertension type: essential hypertension Qualified Code(s): I10 - Essential (primary) hypertension (2) Opioid dependence Current Visit: Yes Status: Chronic Qualifiers: Substance use status: uncomplicated Qualified Code(s): F11.20 - Opioid dependence, uncomplicated (3) GERD (gastroesophageal reflux disease) Current Visit: No Status: Chronic Qualifiers: Esophagitis presence: esophagitis presence not specified Qualified Code(s) : K21.9 - Gastro-esophageal reflux disease without esophagitis (4) Hypercholesterolemia Current Visit: No Status: Chronic (5) Opioid dependence with withdrawal Current Visit: No Status: Chronic (6) Alcohol dependence with uncomplicated withdrawal Current Visit: No Status: Chronic (7) DM2 (diabetes mellitus, type 2) Current Visit: No Status: Chronic Qualifiers: Diabetes mellitus complication status: without complication (8) Nicotine dependence Current Visit: No Status: Chronic Qualifiers: Nicotine product type: cigarettes Substance use status: uncomplicated Qualified Code(s): F17.210 - Nicotine dependence, cigarettes, uncomplicated (9) Cocaine dependence Current Visit: Yes Status: Chronic Qualifiers: Substance use status: uncomplicated Qualified Code(s): F14.20 - Cocaine dependence, uncomplicated (10) Insomnia Current Visit: Yes Status: Chronic Qualifiers: Insomnia type: unspecified Qualified Code(s): G47.00 - Insomnia, unspecified (11) Anxiety and depression Current Visit: Yes Status: Chronic (12) Insomnia secondary to depression with anxiety Current Visit: No Status: Acute Cleared for Admission S - Detox or Rehab [facility] Level of Care: Medically Supervised Detox Regimen/Protocol: Methadone/Librium Breathalyzer - Breathalyzer Breathalyzer: 0 Urine Drug Screen - Test Device Lot number: [id number] Expiration date: 12/07/19 - Control Is test valid?: Yes - Results Drug screen NEGATIVE: No Urine drug screen results: MET-Methamphetamine, FEN-Fentanyl, MOP-Opiates, OXY- Oxycodone, MTD-Methadone Inpatient Rehab Admission - Rehab Decision to Admit Inpatient rehab admission?: No
[2019-01-24] MEDS ORDERED: MAGNESIUM CITRATE 300 ML BOTTLE PO PRN (21:31)
[2019-01-24] MEDS ORDERED: MAG HYDROX/AL HYDROX/SIMETH 30 ML UNIT-DOSE CUP PO PRN (21:31)
[2019-01-24] MEDS ORDERED: MAGNESIUM HYDROX 2400MG/30ML ORAL SUSPENSION 30 ML CUP PO PRN (21:31)
[2019-01-24] MEDS ORDERED: hydrOXYzine PAMOATE 25 MG CAPSULE (FP) PO PRN (21:31)
[2019-01-24] MEDS ORDERED: chlordiazePOXIDE HCL 25 MG CAPSULE PO ONE (21:31)
[2019-01-24] MEDS ORDERED: MENTHOL/PHENOL 1 EACH UD MM PRN (21:31)
[2019-01-24] MEDS ORDERED: chlordiazePOXIDE HCL 10 MG CAPSULE PO PRN (21:31)
[2019-01-24] MEDS ORDERED: MELATONIN 5 MG TABLETS PO PRN (21:31)
[2019-01-24] MEDS ORDERED: NICOTINE POLACRILEX 2 MG GUM BUC PRN (21:31)
[2019-01-24] MEDS ORDERED: IBUPROFEN 400 MG TABLET (FP) PO PRN (21:31)
[2019-01-24] MEDS ORDERED: METHADONE HCL 10 MG TABLET (FOR DETOX USE ONLY) PO ONE ×2 (21:31→23:00)
[2019-01-24] MEDS ORDERED: BISMUTH SUBSALICYLATE 524 MG/30 ML UD PO PRN (21:31)
[2019-01-24] MEDS ORDERED: ACETAMINOPHEN 325 MG TABLET (FP) PO PRN ×2 (21:31)
[2019-01-24] MEDS ORDERED: ALBUTEROL SO4 8 GM HFA INHALER IH PRN (21:35)
[2019-01-25 00:21] VITALS: BMI 22.8
[2019-01-25] MEDS: chlordiazePOXIDE HCL 25 MG CAPSULE PO SCH ×3 (00:59→13:30)
[2019-01-25] MEDS: THIAMINE HCL 100 MG TABLET (FP) PO SCH ×2 (01:34→22:07)
[2019-01-25] MEDS: METOPROLOL TARTRATE 25 MG TABLET (FP) PO SCH ×3 (01:34→11:08)
[2019-01-25] MEDS: RANITIDINE HCL 150 MG TABLET (FP) PO SCH ×4 (01:34→22:06)
[2019-01-25] MEDS: ATORVASTATIN CA 10 MG TABLET (FP) PO SCH ×2 (01:34→22:06)
[2019-01-25] MEDS: HYDROCHLOROTHIAZIDE 25 MG TABLET (FP) PO SCH ×3 (01:35→11:08)
[2019-01-25] MEDS ORDERED: chlordiazePOXIDE HCL 25 MG CAPSULE PO ONE (01:45)
[2019-01-25] MEDS ORDERED: METHADONE HCL 10 MG TABLET (FOR DETOX USE ONLY) PO ONE (01:45)
[2019-01-25] MEDS: METHOCARBAMOL 500 MG TABLET PO PRN ×2 (09:01→18:30)
[2019-01-25] MEDS ORDERED: METHADONE HCL 5 MG TABLET (FOR DETOX USE ONLY) PO ONE (10:00)
[2019-01-25 10:25] LABS: BILIRUBIN,TOTAL 0.4 mg/dL (0.2-1); CALCIUM 8.8 mg/dL (8.5-10.1); CREATININE 1.1 mg/dL (0.55-1.3); TOT PROT 6.9 g/dl (6.4-8.2)
[2019-01-25 10:27] LABS: HEMATOCRIT 33.6 % (32.4-45.2); HEMOGLOBIN 10.8 GM/dL (10.7-15.3); MCH 27.6 pg (25.7-33.7); MCHC 32.3 g/dl (32.0-36.0); MEAN CELL VOLUME 85.4 fl (80-96); PLATELET COUNT 184 K/MM3 (134-434); RBC 3.93 M/mm3 (3.60-5.2); RDW 17.3 % (11.6-15.6); WHITE BLOOD COUNT 3.3 K/mm3 (4.0-10.0)
--- NOTE | 2019-01-25 10:56 | CONSULT ---
[facility] Psychiatric Consult - Data Date of interview: 01/25/19 Admission source: [facility] Identifying data: Patient is a 73 y/o AA female single, mother of 2 unemployed, domiciled SSI recipient Substance Abuse History: Admitted to the unit for Heroin, Oxycodone and Cocaine dependence. She is marginally cooperative, looks sick, tearful, complains of withdrawal. Refer to addiction counselor note for detailed substance use history. Medical History: Records indicate that she has the following medcial problems: COPD, HTN, Hypercholesterolemia Type 2 DM, GERD, Hep C Psychiatric History: She denies prior contact with mental health healthcare consultant, no hospitalization or treatment. No sucide ideation. Feels depressed with sleep disruption Physical/Sexual Abuse/Trauma History: No information obtained Mental Status Exam - Mental Status Exam Alert and Oriented to: Person Cognitive Function: Fair Patient Appearance: Unkempt, Disheveled Mood: Apathetic, Depressed Affect: Mood Congruent Patient Behavior: Guarded, Distractible Speech Pattern: Delayed Voice Loudness: Moderately Soft/Quiet Thought Process: Loose Associations, Thought Blocking Thought Disorder: Not Present Hallucinations: Denies Suicidal Ideation: Denies Homicidal Ideation: Denies Insight/Judgement: Poor Sleep: Fair Appetite: Fair Muscle strength/Tone: Mild Hypotonicity Gait/Station: Normal Psychiatric Findings - Problem List ([place] 1, 2,3) (1) HTN (hypertension) Current Visit: Yes Status: Acute Qualifiers: Hypertension type: essential hypertension Qualified Code(s): I10 - Essential (primary) hypertension (2) Cocaine dependence Current Visit: Yes Status: Chronic Qualifiers: Substance use status: uncomplicated Qualified Code(s): F14.20 - Cocaine dependence, uncomplicated (3) Insomnia Current Visit: Yes Status: Chronic Qualifiers: Insomnia type: unspecified Qualified Code(s): G47.00 - Insomnia, unspecified (4) Opioid dependence Current Visit: Yes Status: Chronic Qualifiers: Substance use status: uncomplicated Qualified Code(s): F11.20 - Opioid dependence, uncomplicated (5) Emphysema lung Current Visit: No Status: Acute (6) Low back pain potentially associated with spinal stenosis Current Visit: No Status: Acute (7) Alcohol dependence with uncomplicated withdrawal Current Visit: No Status: Chronic (8) DM2 (diabetes mellitus, type 2) Current Visit: No Status: Chronic Qualifiers: Diabetes mellitus complication status: without complication (9) Hypercholesterolemia Current Visit: No Status: Chronic - Initial Treatment Plan Initial Treatment Plan: Continue in patient Deox treatment. Patient should be monitored for drug withdrawal symptoms. To be re-assessed by psych for an update mental staus examination when improved. Monitor response
[2019-01-25] MEDS: PRENATAL VITAMINS W/ FOLIC ACID TABLET (FP) PO SCH (11:08)
[2019-01-25] MEDS: NICOTINE 14 MG/24 HOURS TOPICAL PATCH TD SCH ×2 (11:09→11:15)
--- NOTE | 2019-01-25 12:49 | PN ---
[facility] CIWA - CIWA Score Nausea/Vomitin-Mild Nausea/No Vomiting Muscle Tremors: 3 Anxiety: 4-Mod. Anxious/Guarded Agitation: 4-Moderately Restless Paroxysmal Sweats: 3 Orientation: 0-Oriented Tacttile Disturbances: 0-None Auditory Disturbances: 0-None Visual Disturbances: 0-None Headache: 0-None Present CIWA-Ar Total Score: 15 [facility] COWS - Scale Resting Pulse: 0= [place] 80 or Below Sweatin= Chills/Flushing Restless Observation: 3= Extraneous Movement Pupil Size: 0= Normal to Room Light Bone or Joint Aches: 2= Severe Diffuse Aches Runny Nose/ Eye Tearin= None GI Upset > 30mins: 2= Nausea/Diarrhea Tremor Observation of Outstretched Hands: 2= Slight Tremor Visible Yawning Observation: 0= None Anxiety or Irritability: 1=Feels Anxious/Irritable Goose Flesh Skin: 0=Smooth Skin COWS Score: 11 [facility] Progress Note (SOAP) Subjective: Diarrhea, chills, anxious, muscle spasms Objective: 01/25/19 12:46 Last Vital Signs Temp Pulse Resp BP Pulse Ox 97.7 F 66 19 125/71 01/25/19 09:46 01/25/19 09:46 01/25/19 09:46 01/25/19 09:46 Laboratory Tests 01/25/19 01/25/19 01/25/19 07:50 07:50 07:50 WBC 3.3 L RBC 3.93 Hgb 10.8 Hct 33.6 D MCV 85.4 MCH 27.6 MCHC 32.3 RDW 17.3 H Plt Count 184 MPV 9.0 Sodium 141 Potassium 4.0 Chloride 106 Carbon Dioxide 29 Anion Gap 6 L BUN 28 H Creatinine 1.1 Est GFR (CKD-EPI)AfAm 58.50 Est GFR (CKD-EPI)NonAf 50.47 Random Glucose 101 Calcium 8.8 Total Bilirubin 0.4 AST 19 ALT 11 L Alkaline Phosphatase 62 Total Protein 6.9 Albumin 3.0 L RPR Titer Nonreactive Labs reviewed: bun 28 Assessment: 01/25/19 12:47 Withdrawal symptoms Noted with prerenal azotemia Plan: Continue detox Prerenal azotemia: encouraged PO water hydration Repeat BMP on 01/27/19
[2019-01-25] MEDS: NICOTINE 21 MG/24 HOURS TOPICAL PATCH TD SCH (18:25)
[2019-01-25] MEDS: cloNIDine HCL 0.1 MG TABLET PO PRN (18:30)
[2019-01-25] MEDS ORDERED: MACITENTAN PO SCH (18:34)
--- NOTE | 2019-01-25 20:58 | PN ---
[facility] Progress Note Note: Reviewed and updated patients medications.
[2019-01-25] MEDS ORDERED: HYDROCHLOROTHIAZIDE 25 MG TABLET (FP) PO SCH (21:00)
[2019-01-25] MEDS: chlordiazePOXIDE 5 MG CAPSULE PO SCH (22:05)
[2019-01-26] MEDS: METHOCARBAMOL 500 MG TABLET PO PRN ×2 (00:52→18:41)
[2019-01-26] MEDS: chlordiazePOXIDE 5 MG CAPSULE PO SCH ×2 (06:12→14:00)
[2019-01-26] MEDS ORDERED: METHADONE HCL 10 MG TABLET (FOR DETOX USE ONLY) PO ONE (10:00)
[2019-01-26] MEDS ORDERED: MACITENTAN PO SCH (10:00)
[2019-01-26] MEDS: RANITIDINE HCL 150 MG TABLET (FP) PO SCH ×2 (10:29→22:11)
[2019-01-26] MEDS: metoPROLOL SUCCINATE 25 MG TAB.SR.24H (FP) PO SCH (10:29)
[2019-01-26] MEDS: PRENATAL VITAMINS W/ FOLIC ACID TABLET (FP) PO SCH (10:29)
[2019-01-26] MEDS: HYDROCHLOROTHIAZIDE 25 MG TABLET (FP) PO SCH (10:30)
[2019-01-26] MEDS: NICOTINE 21 MG/24 HOURS TOPICAL PATCH TD SCH (11:00)
[2019-01-26] MEDS: NICOTINE 14 MG/24 HOURS TOPICAL PATCH TD SCH (11:00)
[2019-01-26] MEDS ORDERED: METHADONE HCL 5 MG TABLET (FOR DETOX USE ONLY) PO ONE (11:25)
[2019-01-26] MEDS ORDERED: diphenhydrAMINE HCL 50 MG CAPSULE PO ONE (11:25)
[2019-01-26] MEDS: TIOTROPIUM BROMIDE IH SCH (12:00)
--- NOTE | 2019-01-26 12:57 | PN ---
S CIWA - CIWA Score Nausea/Vomitin Muscle Tremors: 3 Anxiety: 4-Mod. Anxious/Guarded Agitation: 1-Slight > Activity Paroxysmal Sweats: No Perspiration Orientation: 0-Oriented Tacttile Disturbances: 0-None Auditory Disturbances: 0-None Visual Disturbances: 2-Mild Sensitivity Headache: 0-None Present CIWA-Ar Total Score: 13 [facility] COWS - Scale Resting Pulse: 0= [place] 80 or Below Sweatin= Chills/Flushing Restless Observation: 1= Difficult to Sit Still Pupil Size: 0= Normal to Room Light Bone or Joint Aches: 2= Severe Diffuse Aches Runny Nose/ Eye Tearin= None GI Upset > 30mins: 2= Nausea/Diarrhea Tremor Observation of Outstretched Hands: 2= Slight Tremor Visible Yawning Observation: 1= 1-2x During Session Anxiety or Irritability: 2=Irritable/Anxious Goose Flesh Skin: 0=Smooth Skin COWS Score: 11 S Progress Note (SOAP) Subjective: Anxiety, Interrupted Sleep, Diarrhea, Tremors, Nausea, Body Aches. Objective: PATIENT A & O X 3, OBSERVED AMBULATING ON UNIT UNASSISTED. IN NO ACUTE DISTRESS. 01/26/19 12:54 Vital Signs Temperature 97.0 F L 01/26/19 09:22 Pulse Rate 60 01/26/19 09:22 Respiratory Rate 18 01/26/19 09:22 Blood Pressure 123/67 01/26/19 09:22 O2 Sat by Pulse Oximetry (%) Laboratory Tests 01/24/19 01/25/19 01/25/19 20:48 07:50 07:50 WBC 3.3 L RBC 3.93 Hgb 10.8 Hct 33.6 D MCV 85.4 MCH 27.6 MCHC 32.3 RDW 17.3 H Plt Count 184 MPV 9.0 Sodium 141 Potassium 4.0 Chloride 106 Carbon Dioxide 29 Anion Gap 6 L BUN 28 H Creatinine 1.1 Est GFR (CKD-EPI)AfAm 58.50 Est GFR (CKD-EPI)NonAf 50.47 Random Glucose 101 Calcium 8.8 Total Bilirubin 0.4 AST 19 ALT 11 L Alkaline Phosphatase 62 Total Protein 6.9 Albumin 3.0 L POC Urine HCG, Qual Negative RPR Titer 01/25/19 07:50 WBC RBC Hgb Hct MCV MCH MCHC RDW Plt Count MPV Sodium Potassium Chloride Carbon Dioxide Anion Gap BUN Creatinine Est GFR (CKD-EPI)AfAm Est GFR (CKD-EPI)NonAf Random Glucose Calcium Total Bilirubin AST ALT Alkaline Phosphatase Total Protein Albumin POC Urine HCG, Qual RPR Titer Nonreactive LABS NOTED. 01/26/19 13:08 Assessment: 01/26/19 12:54 WITHDRAWAL SYMPTOMS. LEUKOPENIA. AZOTEMIA. 01/26/19 12:57 Plan: CONTINUE DETOX. INCREASE DAILY PO FLUID / WATER INTAKE. PATIENT REPORTS THAT SHE IS CURRENTLY EXPERIENCING CONSIDERABLE WITHDRAWAL SYMPTOMS. METHADONE DETOX PROTOCOL EXTENDED BY ONE DAY SO THAT PATIENT WILL BE DISCHARGED ON 01/28/2019. PATIENT BROUGHT BOTTLE OF OPSUMIT (MACETENTAN), USED FOR TREATMENT OF PULMONARY HYPERTENSION, WITH HER AT TIME OF ADMISSION. BOTTLE DID HAVE SHIP CONSTRUCTION TEACHER LABEL ON IT; HOWEVER, DID NOT HAVE PATIENT'S NAME OR IDENTIFYING INFORMATION ON IT. ACCORDING TO PATIENT, THIS MEDICATION WAS SHIPPED TO HER BY A COMPANY CALLED ' [employer]' . SHIPMENT OF MEDICATION TO PATIENT (LAST SHIPPED ON 01/20/2019) CONFIRMED BY 'DAMI' AT [employer]. MEDICATION BOTTLE APPEARS TO BE INTACT. MEDICATION SENT TO [facility] FOR VERIFICATION AND INSPECTION.
[2019-01-26] MEDS: MACITENTAN 10 MG PO SCH (15:47)
[2019-01-26] MEDS: cloNIDine HCL 0.1 MG TABLET PO PRN (18:41)
[2019-01-26] MEDS ORDERED: chlordiazePOXIDE HCL 10 MG CAPSULE PO PRN (21:00)
[2019-01-26] MEDS: THIAMINE HCL 100 MG TABLET (FP) PO SCH (22:09)
[2019-01-26] MEDS: chlordiazePOXIDE HCL 10 MG CAPSULE PO SCH (22:10)
[2019-01-26] MEDS: ATORVASTATIN CA 10 MG TABLET (FP) PO SCH (22:10)
[2019-01-26] MEDS: diphenhydrAMINE HCL 25 MG CAPSULE (FP) PO PRN (22:13)
[2019-01-27] MEDS: chlordiazePOXIDE HCL 10 MG CAPSULE PO SCH ×3 (05:40→22:26)
[2019-01-27] MEDS: diphenhydrAMINE HCL 25 MG CAPSULE (FP) PO PRN ×3 (05:54→23:21)
[2019-01-27] MEDS ORDERED: METHADONE HCL 5 MG TABLET (FOR DETOX USE ONLY) PO ONE (06:00)
[2019-01-27] MEDS ORDERED: METHADONE HCL 10 MG TABLET (FOR DETOX USE ONLY) PO ONE (10:00)
[2019-01-27 10:03] LABS: CALCIUM 8.6 mg/dL (8.5-10.1); POTASSIUM 4.1 mmol/L (3.5-5.1)
[2019-01-27] MEDS: MACITENTAN 10 MG PO SCH (10:09)
[2019-01-27] MEDS: NICOTINE 21 MG/24 HOURS TOPICAL PATCH TD SCH (10:09)
[2019-01-27] MEDS: RANITIDINE HCL 150 MG TABLET (FP) PO SCH ×2 (10:10→22:26)
[2019-01-27] MEDS: TIOTROPIUM BROMIDE IH SCH (10:10)
[2019-01-27] MEDS: HYDROCHLOROTHIAZIDE 25 MG TABLET (FP) PO SCH (10:10)
[2019-01-27] MEDS: metoPROLOL SUCCINATE 25 MG TAB.SR.24H (FP) PO SCH (10:10)
[2019-01-27] MEDS: PRENATAL VITAMINS W/ FOLIC ACID TABLET (FP) PO SCH (10:10)
[2019-01-27] MEDS: NICOTINE 14 MG/24 HOURS TOPICAL PATCH TD SCH (10:10)
--- NOTE | 2019-01-27 11:00 | PN ---
[facility] Progress Note (SOAP) Subjective: constipation sweats Objective: 01/27/19 11:00 Vital Signs Temperature 98.1 F 01/27/19 09:32 Pulse Rate 59 L 01/27/19 09:32 Respiratory Rate 18 01/27/19 09:32 Blood Pressure 114/61 01/27/19 09:32 O2 Sat by Pulse Oximetry (%) [id number] ambulating no acute distress Assessment: 01/27/19 11:00 mild withdrawal sx Plan: continue detox increase fluids d/c in am
[2019-01-27] MEDS: THIAMINE HCL 100 MG TABLET (FP) PO SCH (22:26)
[2019-01-27] MEDS: ATORVASTATIN CA 10 MG TABLET (FP) PO SCH (22:26)
[2019-01-28] MEDS ORDERED: METHADONE HCL 5 MG TABLET (FOR DETOX USE ONLY) PO ONE (06:00)
[2019-01-28] MEDS: diphenhydrAMINE HCL 25 MG CAPSULE (FP) PO PRN (06:55)
--- NOTE | 2019-01-28 09:11 | DS ---
[facility] Detox Discharge Summary Admission Date: 01/24/19 Discharge Date: 01/28/19 - History Present History: Alcohol Dependence, Cocaine Dependence, Opioid Dependence - Physical Exam Results Vital Signs: Vital Signs Temperature 98.4 F 01/28/19 08:03 Pulse Rate 66 01/28/19 08:03 Respiratory Rate 18 01/28/19 08:03 Blood Pressure 101/55 L 01/28/19 08:03 O2 Sat by Pulse Oximetry (%) - Treatment Hospital Course: Detox Protocol Followed, Detoxed Safely, Responded well, Discharged Condition Good, Rehab Referral Accepted - Medication Discharge Medications: Ambulatory Orders Atorvastatin Ca [Lipitor] 10 mg PO HS 10/20/17 Hydrochlorothiazide [Hctz -] 50 mg PO DAILY 10/20/17 Albuterol Sulfate Inhaler - [Ventolin Hfa Inhaler -] 2 inh PO Q4H PRN 10/21/17 Macitentan [Opsumit] 1 tab PO DAILY 01/25/19 Metoprolol Succinate [Toprol Xl] 1 tab PO DAILY 01/25/19 Ranitidine [Zantac -] 1 tab PO DAILY PRN MDD 2 01/25/19 Tiotropium [place] [Spiriva] 1 cap IH DAILY 01/25/19 - Diagnosis (1) HTN (hypertension) Current Visit: Yes Status: Chronic Qualifiers: Hypertension type: essential hypertension Qualified Code(s): I10 - Essential (primary) hypertension (2) Anxiety and depression Current Visit: Yes Status: Chronic (3) Cocaine dependence Current Visit: Yes Status: Chronic Qualifiers: Substance use status: uncomplicated Qualified Code(s): F14.20 - Cocaine dependence, uncomplicated (4) Insomnia Current Visit: Yes Status: Chronic Qualifiers: Insomnia type: unspecified Qualified Code(s): G47.00 - Insomnia, unspecified (5) Emphysema lung Current Visit: No Status: Acute Qualifiers: Emphysema type: unspecified Qualified Code(s): J43.9 - Emphysema, unspecified (6) Insomnia secondary to depression with anxiety Current Visit: No Status: Acute (7) Low back pain potentially associated with spinal stenosis Current Visit: No Status: Acute (8) Alcohol dependence with uncomplicated withdrawal Current Visit: Yes Status: Chronic (9) DM2 (diabetes mellitus, type 2) Current Visit: Yes Status: Chronic Qualifiers: Diabetes mellitus complication status: without complication (10) GERD (gastroesophageal reflux disease) Current Visit: Yes Status: Chronic Qualifiers: Esophagitis presence: without esophagitis Qualified Code(s): K21.9 - Gastro -esophageal reflux disease without esophagitis (11) Hypercholesterolemia Current Visit: No Status: Chronic (12) Nicotine dependence Current Visit: Yes Status: Chronic Qualifiers: Nicotine product type: cigarettes Substance use status: uncomplicated Qualified Code(s): F17.210 - Nicotine dependence, cigarettes, uncomplicated (13) Opioid dependence with withdrawal Current Visit: Yes Status: Chronic (14) Drug-induced mood disorder Current Visit: No Status: Suspected - AMA Did Patient Leave Against Medical Advice: No (pt refused after care rehab.)
[2019-01-28] MEDS: PRENATAL VITAMINS W/ FOLIC ACID TABLET (FP) PO SCH (10:49)
[2019-01-28] MEDS: HYDROCHLOROTHIAZIDE 25 MG TABLET (FP) PO SCH (10:49)
[2019-01-28] MEDS: TIOTROPIUM BROMIDE IH SCH (10:50)
[2019-01-28] MEDS: MACITENTAN 10 MG PO SCH (10:50)
[2019-01-28] MEDS: RANITIDINE HCL 150 MG TABLET (FP) PO SCH (10:50)
[2019-01-28] MEDS: NICOTINE 21 MG/24 HOURS TOPICAL PATCH TD SCH (10:50)
[2019-01-28] MEDS: NICOTINE 14 MG/24 HOURS TOPICAL PATCH TD SCH (10:50)
[2019-01-28] MEDS: metoPROLOL SUCCINATE 25 MG TAB.SR.24H (FP) PO SCH (10:51)
[2019-01-28 11:08] VITALS: BP 123/70; PULSE 72; TEMP 98.5
== END 2019-01-28 12:15 | disposition home or self-care (01) | DRG 897 ==
LOC: YASAS 18:40 → Y3N 22:46 → Y6N 01-25 00:52
PROVIDERS: ADMIT Surgery; ATTEND Surgery
PROC: HZ2ZZZZ Detoxification Services for Substance Abuse Treatment (ICD-10-PCS; principal; 2019-01-24)
DX: F11.23 Opioid dependence with withdrawal (principal); F14.20 Cocaine dependence, uncomplicated; F10.230 Alcohol dependence with withdrawal, uncomplicated; F17.210 Nicotine dependence, cigarettes, uncomplicated; F51.05 Insomnia due to other mental disorder; F19.24 Other psychoactive substance dependence with psychoactive substance-induced mood disorder; F41.8 Other specified anxiety disorders; F31.9 Bipolar disorder, unspecified; I10 Essential (primary) hypertension; E78.00 Pure hypercholesterolemia, unspecified; J43.9 Emphysema, unspecified; E11.9 Type 2 diabetes mellitus without complications; M54.5 Low back pain; K21.9 Gastro-esophageal reflux disease without esophagitis; D72.819 Decreased white blood cell count, unspecified; R79.89 Other specified abnormal findings of blood chemistry
CPT/HCPCS: 36415; 80048; 80053; 81025; 82962; 85027; 86593; J0735

== ENCOUNTER 2019-09-04 12:18 | Inpatient (IN) | payer OTHER ==
[2019-09-04 12:56] VITALS: BMI 21.9
--- NOTE | 2019-09-04 13:37 | HP ---
COWS - Scale Resting Pulse: 1= [place] 81-100 Sweatin= Chills/Flushing Restless Observation: 3= Extraneous Movement Pupil Size: 0= Normal to Room Light Bone or Joint Aches: 2= Severe Diffuse Aches Runny Nose/ Eye Tearin= Runny Nose/Eyes GI Upset > 30mins: 2= Nausea/Diarrhea Tremor Observation: 1= Tremor [place], Not Seen Yawning Observation: 1= 1-2x During Session Anxiety or Irritability: 1=Feels Anxious/Irritable Goose Flesh Skin: 0=Smooth Skin COWS Score: 14 CIWA Score Nausea/Vomitin Muscle Tremors: 1-None Visible, but [place] Anxiety: 2 Agitation: 4-Moderately Restless Paroxysmal Sweats: 1-Minimal Palms Moist Orientation: 0-Oriented Tacttile Disturbances: 0-None Auditory Disturbances: 0-None Visual Disturbances: 0-None Headache: 3-Moderate CIWA-Ar Total Score: 13 - Admission Criteria [facility]ASAS Guidelines: Admission for Medically Managed Detox: Requires at least one of the followin. CIWA greater than 12 2. Seizures within the past 24 hours 3. Delirium tremens within the past 24 hours 4. Hallucinations within the past 24 hours 5. Acute intervention needed for co occurring medical disorder 6. Acute intervention needed for co occurring psychiatric disorder 7. Severe withdrawal that cannot be handled at a lower level of care (continued vomiting, continued diarrhea, abnormal vital signs) requiring intravenous medication and/or fluids 8. Admitting History and Physical - Admission Chief Complaint: detox from heroin, methadone, alcohol and oxycodone, History of Present Illness: Ms. Jhaveri is a 74 yo F with pmhx HTN, COPD, pre-diabetes who presents with the desire to go into detox for alcohol, heroin, methadone, and oxycodone misuse. She reports that she was last in detox in january 2019 but did not complete any rehab. She said shortly after leaving detox she began using again but she acknowledges now that she needed longer for detox and should have entered into rehab. She states that she currently drinks 4 nips of vodka per day and is inhaling 10 bags of heroin per day. She also buys methadone from the street ~ 40mg per day. She is also using 120mg of oxycodone per day. She states the last time she [facility] was in 1994. She denies ever overdosing from heroin. She denies ever having seizures from withdrawing from alcohol, and she denies blacking out. She says she has been using these drugs since she was 23 yo. She lives in an apt alone and states that whatever money she gathers she spends on drugs. She also says some of her friends are in a methadone program and they will occasionally just share with her. She is coming in today because her daughter is very concerned about her drug use and her doctors are also concerned about her smoking (she does not disclose to them her drug use because shes afraid of being judged). - Past Medical History Cardiovascular: Yes: HTN Pulmonary: Yes: COPD - Smoking History Smoking history: Current every day smoker Have you smoked in the past 12 months: Yes Aproximately how many cigarettes per day: 10 - Alcohol/Substance Use Hx Alcohol Use: Yes Admission [facility] Allergies/Adverse Reactions: Allergies Allergy/AdvReac Type Severity Reaction Status Date / Time Sulfa (Sulfonamide Allergy Verified 09/04/19 12:37 Antibiotics) - Ebola screening Have you traveled outside of the country in the last 21 days: No Have you had contact with anyone from an Ebola affected area: No Do you have a fever: No Patient History - Patient Medical History Hx Anemia: No Hx Asthma: No Hx Chronic Obstructive Pulmonary Disease (COPD): Yes (ON ALBUTEROL INHALER) Hx Cancer: No Hx Cardiac Disorders: No Hx Congestive Heart Failure: No Hx Hypertension: Yes (ON MED) Hx Hypercholesterolemia: Yes (ON LIPITOR) Hx Pacemaker: No HX Cerebrovascular Accident: No Hx Seizures: No Hx Dementia: No Hx Diabetes: Yes (ON DIET CONTROL) Hx Gastrointestinal Disorders: Yes (GERD) Hx Liver Disease: Yes (HEPATITIS C TREATED) Hx Genitourinary Disorders: No Hx Sexually Transmitted Disorders: No Hx Renal Disease (ESRD): No Hx Thyroid Disease: No Hx Human Immunodeficiency Virus (HIV): No (LAST 2014 NEGATIVE) Hx Hepatitis C: Yes (TREATED WITH HARVONI 2015) Hx Depression: Yes (ANXIETY.INSOMNIA) Hx Suicide Attempt: No Hx Bipolar Disorder: No Hx Schizophrenia: No - Patient Surgical History Past Surgical History: Yes Hx Neurologic Surgery: No Hx Cataract Extraction: No Hx Cardiac Surgery: No Hx Lung Surgery: No Hx Breast Surgery: No Hx Breast Biopsy: No Hx Abdominal Surgery: No Hx Appendectomy: No Hx Cholecystectomy: No Hx Genitourinary Surgery: No Hx Section: No Hx Orthopedic Surgery: No Other Surgical History: SURGERY OF MILES 3 YEARS AGO - Smoking Cessation Smoking history: Current every day smoker Have you smoked in the past 12 months: Yes Aproximately how many cigarettes per day: 10 Hx Chewing Tobacco Use: No Initiated information on smoking cessation: Yes 'Breaking Loose' booklet given: 09/04/19 - Substances abused Heroin Substance route: Inhalation Frequency: Daily Amount used: 10bags Age of first use: 23 Date of last use: 09/04/19 Alcohol Substance route: Oral Frequency: Daily Amount used: 4 nips of vodka Age of first use: 23 Date of last use: 09/04/19 Cocaine Substance route: Inhalation Frequency: Daily Amount used: $20/D Age of first use: 23 Date of last use: 01/23/19 Oxycontin Other (specify): OXYCODONE Substance route: Oral Frequency: Daily Amount used: 150MGS. Age of first use: 69 Date of last use: 09/04/19 Admission Physical Exam [facility] - Vital Signs Vital Signs: Vital Signs - 24 hr 09/04/19 12:36 Temperature 98.8 F Pulse Rate 85 Respiratory 16 Rate Blood Pressure 117/74 - Physical General Appearance: Yes: Within Normal Limits, Appropriately Dressed, Mild Distress HEENTM: Yes: Within Normal Limits, EOMI, Hearing grossly Normal, Normal ENT Inspection, Other (poor dentition, partial dentures) Respiratory: Yes: Within Normal Limits, Chest Non-Tender, Lungs Clear, Normal Breath Sounds (poor respiratory effort in the lower lung levy) Neck: Yes: Within Normal Limits, No masses,lesions,Nodules, Trachea in good position Cardiology: Yes: Within Normal Limits, Regular Rhythm, Regular Rate, S1, S2 Abdominal: Yes: Within Normal Limits, Normal Bowel Sounds, Soft, Guarding ( suprapubic tenderness and guarding) Back: Yes: Within Normal Limits, Normal Inspection. No: CVA Tenderness Musculoskeletal: Yes: Within Normal Limits, full range of Motion, Gait Steady Extremities: Yes: Within Normal Limits, Normal Capillary Refill, Normal Range of Motion, Other (thomson erythema) 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: Yes: Within Normal Limits, party plan selling distributor II-XII NML intact, Motor Strength 5 /5 Integumentary: Yes: Within Normal Limits, Dry, Warm, Erythema (erythema of the palms and fingers) Breathalyzer - Breathalyzer Breathalyzer: 0 Urine Drug Screen - Test Device Lot number: [id number] Expiration date: 04/07/21 - Control Is test valid?: Yes - Results Drug screen NEGATIVE: No Urine drug screen results: MOP-Opiates, OXY-Oxycodone, BZO-Benzodiazepines Inpatient Rehab Admission - Rehab Decision to Admit Inpatient rehab admission?: No
[2019-09-04] MEDS ORDERED: chlordiazePOXIDE HCL 25 MG CAPSULE PO PRN (14:36)
[2019-09-04] MEDS ORDERED: ACETAMINOPHEN 325 MG TABLET (FP) PO PRN (14:36)
[2019-09-04] MEDS ORDERED: cloNIDine HCL 0.1 MG TABLET PO PRN (14:36)
[2019-09-04] MEDS ORDERED: BISMUTH SUBSALICYLATE 524 MG/30 ML UD PO PRN (14:36)
[2019-09-04] MEDS ORDERED: MELATONIN 5 MG TABLETS PO PRN (14:36)
[2019-09-04] MEDS ORDERED: hydrOXYzine PAMOATE 25 MG CAPSULE (FP) PO PRN (14:36)
[2019-09-04] MEDS ORDERED: MAGNESIUM CITRATE 300 ML BOTTLE PO PRN (14:36)
[2019-09-04] MEDS ORDERED: IBUPROFEN 400 MG TABLET (FP) PO PRN (14:36)
[2019-09-04] MEDS ORDERED: MENTHOL/PHENOL 1 EACH UD MM PRN (14:36)
[2019-09-04] MEDS ORDERED: MAGNESIUM HYDROX 2400MG/30ML ORAL SUSPENSION 30 ML CUP PO PRN (14:36)
[2019-09-04] MEDS ORDERED: MAG HYDROX/AL HYDROX/SIMETH 30 ML UNIT-DOSE CUP PO PRN (14:36)
[2019-09-04] MEDS ORDERED: METHOCARBAMOL 500 MG TABLET PO PRN (14:36)
--- NOTE | 2019-09-04 15:08 | PN ---
Teaching Attending Note Name of Resident: Lilia Noriega ATTENDING PHYSICIAN STATEMENT I saw and evaluated the patient. I reviewed the resident's note and discussed the case with the resident. I agree with the resident's findings and plan as documented. SUBJECTIVE:this 74 years female with heroin,alcohol dependence,seeking detox, borderlined dm,copd, ambulatory with cane,s/p surgery of back,living alone OBJECTIVE: Vital Signs Temperature 98.8 F 09/04/19 12:36 Pulse Rate 85 09/04/19 12:36 Respiratory Rate 16 09/04/19 12:36 Blood Pressure 117/74 09/04/19 12:36 O2 Sat by Pulse Oximetry (%) withdrawal signs and symptom ASSESSMENT AND PLAN: this 74 years old female with heroin and alcohol dependence,type 2 dm, ambulation with cane, needed help to stop,medically managed detox,methadone and librium regimen,bgm monitoring
[2019-09-04] MEDS ORDERED: MECLIZINE HCL 12.5 MG TABLET PO PRN (15:12)
[2019-09-04] MEDS ORDERED: RANITIDINE PO PRN (15:12)
[2019-09-04] MEDS ORDERED: METHADONE HCL 10 MG TABLET (FOR DETOX USE ONLY) PO ONE (15:40)
[2019-09-04] MEDS: NICOTINE 14 MG/24 HOURS TOPICAL PATCH TD SCH (16:03)
[2019-09-04] MEDS: CYANOCOBALAMIN 1,000 MCG TABLET (FP) PO SCH (16:04)
[2019-09-04 17:03] LABS: HEMATOCRIT 43.6 % (32.4-45.2); HEMOGLOBIN 14.5 GM/dL (10.7-15.3); MCH 28.7 pg (25.7-33.7); MCHC 33.2 g/dl (32.0-36.0); MEAN CELL VOLUME 86.7 fl (80-96); MEAN PLT VOLUME 9.5 fl (7.5-11.1); PLATELET COUNT 209 K/MM3 (134-434); RBC 5.03 M/mm3 (3.60-5.2); RDW 15.9 % (11.6-15.6); WHITE BLOOD COUNT 4.5 K/mm3 (4.0-10.0)
[2019-09-04 17:18] LABS: ALBUMIN 3.6 g/dl (3.4-5.0); BILIRUBIN,TOTAL 0.6 mg/dL (0.2-1); BLOOD UREA NITROGEN 27.4 mg/dL (7-18); CALCIUM 9.3 mg/dL (8.5-10.1); CREATININE 1.3 mg/dL (0.55-1.3); POTASSIUM 3.9 mmol/L (3.5-5.1); TOT PROT 8.6 g/dl (6.4-8.2)
[2019-09-04] MEDS: chlordiazePOXIDE HCL 25 MG CAPSULE PO SCH ×2 (17:40→22:26)
[2019-09-04] MEDS: ACETAMINOPHEN 325 MG TABLET (FP) PO PRN (20:50)
[2019-09-04] MEDS: ATORVASTATIN CA 10 MG TABLET (FP) PO SCH (22:26)
[2019-09-04] MEDS: THIAMINE HCL 100 MG TABLET (FP) PO SCH (22:26)
[2019-09-05] MEDS: chlordiazePOXIDE HCL 25 MG CAPSULE PO SCH ×4 (07:26→22:52)
[2019-09-05] MEDS ORDERED: METHADONE HCL 5 MG TABLET (FOR DETOX USE ONLY) ONE (09:00)
[2019-09-05] MEDS ORDERED: METHADONE HCL 10 MG TABLET (FOR DETOX USE ONLY) ONE (09:00)
[2019-09-05] MEDS ORDERED: TIOTROPIUM BROMIDE 2.5 MCG (SPIRIVA) RESPIMAT INHALER IH SCH ×2 (10:00→19:12)
[2019-09-05] MEDS ORDERED: METHADONE (DETOX) 20 MG, METHADONE (DETOX) 5 MG PO ONE (10:00)
[2019-09-05] MEDS: PRENATAL VITAMINS W/ FOLIC ACID TABLET (FP) PO SCH (10:27)
[2019-09-05] MEDS: FAMOTIDINE 20 MG TABLET PO SCH (10:27)
[2019-09-05] MEDS: metoPROLOL SUCCINATE 25 MG TAB.SR.24H (FP) PO SCH (10:27)
[2019-09-05] MEDS: HYDROCHLOROTHIAZIDE 25 MG TABLET (FP) PO SCH (10:27)
[2019-09-05] MEDS: THIAMINE HCL 100 MG TABLET (FP) PO SCH ×2 (10:28→22:52)
[2019-09-05] MEDS: NICOTINE 14 MG/24 HOURS TOPICAL PATCH TD SCH (10:28)
[2019-09-05] MEDS: CYANOCOBALAMIN 1,000 MCG TABLET (FP) PO SCH (10:29)
--- NOTE | 2019-09-05 13:36 | EKG ---
Test Reason : Blood Pressure : / mmHG Vent. Rate : 061 BPM Atrial Rate : 061 BPM P-R Int : 170 ms QRS Dur : 138 ms QT Int : 416 ms P-R-T Axes : 065 -42 -37 degrees QTc Int : 418 ms NORMAL SINUS RHYTHM LEFT AXIS DEVIATION RIGHT BUNDLE BRANCH BLOCK T WAVE ABNORMALITY, CONSIDER INFEROLATERAL ISCHEMIA ABNORMAL ECG WHEN COMPARED WITH ECG OF 20-OCT-2017 14:47, T WAVE INVERSION MORE EVIDENT IN INFERIOR LEADS Confirmed by MD MORENO, JERILYN ([id number]) on 09/05/2019 1:35:46 PM Referred By: Confirmed By:JERILYN MAYER MD
--- NOTE | 2019-09-05 17:28 | PN ---
S CIWA - CIWA Score Nausea/Vomitin Muscle Tremors: 3 Anxiety: 2 Agitation: 0-Normal Activity Paroxysmal Sweats: 2 Orientation: 0-Oriented Tacttile Disturbances: 0-None Auditory Disturbances: 0-None Visual Disturbances: 2-Mild Sensitivity Headache: 0-None Present CIWA-Ar Total Score: 11 S COWS - Scale Resting Pulse: 0= [place] 80 or Below Sweatin= Chills/Flushing Restless Observation: 0= Sits Still Pupil Size: 0= Normal to Room Light Bone or Joint Aches: 1= Mild Discomfort Runny Nose/ Eye Tearin= None GI Upset > 30mins: 2= Nausea/Diarrhea Tremor Observation of Outstretched Hands: 2= Slight Tremor Visible Yawning Observation: 1= 1-2x During Session Anxiety or Irritability: 2=Irritable/Anxious Goose Flesh Skin: 0=Smooth Skin COWS Score: 9 S Progress Note (SOAP) Subjective: Sweating, Anxious, Fatigue, Tremors. Objective: PATIENT A & O X 3, OBSERVED AMBULATING ON DETOX UNIT WITH ASSISTANCE OF A CANE. IN NO ACUTE DISTRESS. 09/05/19 17:29 Vital Signs Temperature 97.5 F L 09/05/19 09:30 Pulse Rate 67 09/05/19 09:30 Respiratory Rate 18 09/05/19 09:30 Blood Pressure 121/76 09/05/19 09:30 O2 Sat by Pulse Oximetry (%) Laboratory Tests 09/04/19 09/04/19 09/04/19 15:00 15:00 15:00 WBC 4.5 RBC 5.03 Hgb 14.5 Hct 43.6 D MCV 86.7 MCH 28.7 MCHC 33.2 RDW 15.9 H Plt Count 209 MPV 9.5 Sodium 138 Potassium 3.9 Chloride 106 Carbon Dioxide 27 Anion Gap 5 L BUN 27.4 H Creatinine 1.3 Est GFR (CKD-EPI)AfAm 47.46 Est GFR (CKD-EPI)NonAf 40.95 POC Glucometer Random Glucose 106 Calcium 9.3 Total Bilirubin 0.6 AST 27 ALT 18 Alkaline Phosphatase 92 Total Protein 8.6 H Albumin 3.6 RPR Titer Nonreactive 09/04/19 09/04/19 09/05/19 15:07 16:28 17:04 WBC RBC Hgb Hct MCV MCH MCHC RDW Plt Count MPV Sodium Potassium Chloride Carbon Dioxide Anion Gap BUN Creatinine Est GFR (CKD-EPI)AfAm Est GFR (CKD-EPI)NonAf POC Glucometer 113 109 68 Random Glucose Calcium Total Bilirubin AST ALT Alkaline Phosphatase Total Protein Albumin RPR Titer LABS NOTED. Assessment: 09/05/19 17:29 WITHDRAWAL SYMPTOMS. AZOTEMIA. 09/05/19 17:30 Plan: CONTINUE DETOX. D/C IBUPROFEN AND MAGNESIUM-CONTAINING MEDS. FOR ABNORMAL ADMISSION RENAL LAB VALUES. BASIC METABOLIC PANEL ORDERED FOR TOMORROW TO SEE IF ANY CHANGE IN RENAL LABS VALUES NOTED ON DETOX ADMISSION LABORATORY ASSESSMENT.
[2019-09-05] MEDS: ALBUTEROL SO4 8 GM HFA INHALER IH PRN (18:36)
[2019-09-05] MEDS ORDERED: TIOTROPIUM BROMIDE 2.5 MCG (SPIRIVA) RESPIMAT INHALER IH ONE (19:30)
[2019-09-05] MEDS: ATORVASTATIN CA 10 MG TABLET (FP) PO SCH (22:51)
[2019-09-06] MEDS: chlordiazePOXIDE HCL 25 MG CAPSULE PO SCH ×4 (06:43→22:39)
[2019-09-06 09:33] LABS: CALCIUM 9.1 mg/dL (8.5-10.1); CREATININE 1.3 mg/dL (0.55-1.3); POTASSIUM 4.2 mmol/L (3.5-5.1)
[2019-09-06] MEDS ORDERED: METHADONE HCL 10 MG TABLET (FOR DETOX USE ONLY) PO ONE (10:00)
[2019-09-06] MEDS: FAMOTIDINE 20 MG TABLET PO SCH (10:50)
[2019-09-06] MEDS: THIAMINE HCL 100 MG TABLET (FP) PO SCH ×2 (10:51→22:39)
[2019-09-06] MEDS: metoPROLOL SUCCINATE 25 MG TAB.SR.24H (FP) PO SCH (10:51)
[2019-09-06] MEDS: PRENATAL VITAMINS W/ FOLIC ACID TABLET (FP) PO SCH (10:51)
[2019-09-06] MEDS: CYANOCOBALAMIN 1,000 MCG TABLET (FP) PO SCH (10:51)
[2019-09-06] MEDS: HYDROCHLOROTHIAZIDE 25 MG TABLET (FP) PO SCH (10:51)
[2019-09-06] MEDS: NICOTINE 14 MG/24 HOURS TOPICAL PATCH TD SCH (10:51)
[2019-09-06] MEDS: TIOTROPIUM BROMIDE 2.5 MCG (SPIRIVA) RESPIMAT INHALER IH SCH (10:51)
--- NOTE | 2019-09-06 16:38 | PN ---
[facility] CIWA - CIWA Score Nausea/Vomitin-Mild Nausea/No Vomiting Muscle Tremors: 2 Anxiety: 3 Agitation: 2 Paroxysmal Sweats: 2 Orientation: 0-Oriented Tacttile Disturbances: 0-None Auditory Disturbances: 0-None Visual Disturbances: 0-None Headache: 0-None Present CIWA-Ar Total Score: 10 S COWS - Scale Resting Pulse: 0= [place] 80 or Below Sweatin= Chills/Flushing Restless Observation: 1= Difficult to Sit Still Pupil Size: 0= Normal to Room Light Bone or Joint Aches: 1= Mild Discomfort Runny Nose/ Eye Tearin= Nasal Congestion GI Upset > 30mins: 1= Stomach Cramp Tremor Observation of Outstretched Hands: 2= Slight Tremor Visible Yawning Observation: 0= None Anxiety or Irritability: 2=Irritable/Anxious Goose Flesh Skin: 0=Smooth Skin COWS Score: 9 S Progress Note (SOAP) Subjective: Feels ok, medication working ok Objective: 09/06/19 16:36 Last Vital Signs Temp Pulse Resp BP Pulse Ox 98.2 F 71 18 101/59 L 09/06/19 13:44 09/06/19 13:44 09/06/19 13:44 09/06/19 13:44 Laboratory Tests 09/04/19 09/04/19 09/04/19 15:00 15:00 15:00 WBC 4.5 RBC 5.03 Hgb 14.5 Hct 43.6 D MCV 86.7 MCH 28.7 MCHC 33.2 RDW 15.9 H Plt Count 209 MPV 9.5 Sodium 138 Potassium 3.9 Chloride 106 Carbon Dioxide 27 Anion Gap 5 L BUN 27.4 H Creatinine 1.3 Est GFR (CKD-EPI)AfAm 47.46 Est GFR (CKD-EPI)NonAf 40.95 POC Glucometer Random Glucose 106 Calcium 9.3 Total Bilirubin 0.6 AST 27 ALT 18 Alkaline Phosphatase 92 Total Protein 8.6 H Albumin 3.6 POC Urine HCG, Qual RPR Titer Nonreactive 09/04/19 09/04/19 09/05/19 15:07 16:28 17:04 WBC RBC Hgb Hct MCV MCH MCHC RDW Plt Count MPV Sodium Potassium Chloride Carbon Dioxide Anion Gap BUN Creatinine Est GFR (CKD-EPI)AfAm Est GFR (CKD-EPI)NonAf POC Glucometer 113 109 68 Random Glucose Calcium Total Bilirubin AST ALT Alkaline Phosphatase Total Protein Albumin POC Urine HCG, Qual RPR Titer 09/05/19 09/06/19 09/06/19 18:00 06:34 07:20 WBC RBC Hgb Hct MCV MCH MCHC RDW Plt Count MPV Sodium 145 Potassium 4.2 Chloride 109 H Carbon Dioxide 31 Anion Gap 4 L BUN 30.0 H Creatinine 1.3 Est GFR (CKD-EPI)AfAm 47.46 Est GFR (CKD-EPI)NonAf 40.95 POC Glucometer 73 Random Glucose 86 Calcium 9.1 Total Bilirubin AST ALT Alkaline Phosphatase Total Protein Albumin POC Urine HCG, Qual Negative RPR Titer Labs reviewed: Kidney function appears to be CKD Assessment: 09/06/19 16:37 Withdrawal sxs CKD noted Plan: Continue detox CKD: encouraged PO water hydration Follow up with PCP post discharge for management
[2019-09-06] MEDS: ATORVASTATIN CA 10 MG TABLET (FP) PO SCH (22:39)
[2019-09-07] MEDS ORDERED: chlordiazePOXIDE HCL 10 MG CAPSULE PO PRN
[2019-09-07] MEDS: chlordiazePOXIDE HCL 10 MG CAPSULE PO SCH ×2 (05:59→10:39)
[2019-09-07] MEDS: ACETAMINOPHEN 325 MG TABLET (FP) PO PRN (06:00)
[2019-09-07] MEDS: ALBUTEROL SO4 8 GM HFA INHALER IH PRN (06:03)
[2019-09-07] MEDS ORDERED: METHADONE HCL 10 MG TABLET (FOR DETOX USE ONLY) ONE (09:11)
[2019-09-07] MEDS ORDERED: METHADONE HCL 5 MG TABLET (FOR DETOX USE ONLY) ONE (09:11)
--- NOTE | 2019-09-07 09:58 | PN ---
[facility] CIWA - CIWA Score Nausea/Vomitin-No Nausea/No Vomiting Muscle Tremors: 1-None Visible, but [place] Anxiety: 1-Mildly Anxious Agitation: 1-Slight > Activity Paroxysmal Sweats: No Perspiration Orientation: 0-Oriented Tacttile Disturbances: 0-None Auditory Disturbances: 0-None Visual Disturbances: 0-None Headache: 0-None Present CIWA-Ar Total Score: 3 S COWS - Scale Resting Pulse: 0= [place] 80 or Below Sweatin= Chills/Flushing Restless Observation: 0= Sits Still Pupil Size: 0= Normal to Room Light Bone or Joint Aches: 1= Mild Discomfort Runny Nose/ Eye Tearin= None GI Upset > 30mins: 0= None Tremor Observation of Outstretched Hands: 1= Tremor [place], Not Seen Yawning Observation: 1= 1-2x During Session Anxiety or Irritability: 1=Feels Anxious/Irritable Goose Flesh Skin: 0=Smooth Skin COWS Score: 5 [facility] Progress Note (SOAP) Subjective: librium is making me too sleepy/groggy sweats body aches Objective: 09/07/19 09:58 Vital Signs Temperature 97.5 F L 09/07/19 09:19 Pulse Rate 73 09/07/19 09:19 Respiratory Rate 18 09/07/19 09:19 Blood Pressure 149/72 09/07/19 09:19 O2 Sat by Pulse Oximetry (%) aaox3 lying in bed no acute distress Assessment: 09/07/19 09:58 mild withdrawals Plan: hold this am librium; dose has been modified; continue with modified detox for librium increase fluids
[2019-09-07] MEDS ORDERED: METHADONE (DETOX) 10 MG, METHADONE (DETOX) 5 MG PO ONE (10:00)
[2019-09-07] MEDS: metoPROLOL SUCCINATE 25 MG TAB.SR.24H (FP) PO SCH (10:27)
[2019-09-07] MEDS: HYDROCHLOROTHIAZIDE 25 MG TABLET (FP) PO SCH (10:27)
[2019-09-07] MEDS: NICOTINE 14 MG/24 HOURS TOPICAL PATCH TD SCH (10:27)
[2019-09-07] MEDS: CYANOCOBALAMIN 1,000 MCG TABLET (FP) PO SCH (10:27)
[2019-09-07] MEDS: TIOTROPIUM BROMIDE 2.5 MCG (SPIRIVA) RESPIMAT INHALER IH SCH (10:28)
[2019-09-07] MEDS: PRENATAL VITAMINS W/ FOLIC ACID TABLET (FP) PO SCH (10:28)
[2019-09-07] MEDS: FAMOTIDINE 20 MG TABLET PO SCH (10:28)
[2019-09-07] MEDS: THIAMINE HCL 100 MG TABLET (FP) PO SCH ×2 (10:29→21:58)
[2019-09-07] MEDS: ATORVASTATIN CA 10 MG TABLET (FP) PO SCH (21:58)
[2019-09-08] MEDS ORDERED: chlordiazePOXIDE HCL 10 MG CAPSULE PO SCH (05:00)
[2019-09-08] MEDS: ALBUTEROL SO4 8 GM HFA INHALER IH PRN (07:10)
[2019-09-08] MEDS ORDERED: METHADONE HCL 10 MG TABLET (FOR DETOX USE ONLY) PO ONE (10:00)
[2019-09-08] MEDS: FAMOTIDINE 20 MG TABLET PO SCH (10:41)
[2019-09-08] MEDS: NICOTINE 14 MG/24 HOURS TOPICAL PATCH TD SCH (10:41)
[2019-09-08] MEDS: HYDROCHLOROTHIAZIDE 25 MG TABLET (FP) PO SCH (10:41)
[2019-09-08] MEDS: THIAMINE HCL 100 MG TABLET (FP) PO SCH ×2 (10:42→22:25)
[2019-09-08] MEDS: metoPROLOL SUCCINATE 25 MG TAB.SR.24H (FP) PO SCH (10:42)
[2019-09-08] MEDS: CYANOCOBALAMIN 1,000 MCG TABLET (FP) PO SCH (10:42)
[2019-09-08] MEDS: PRENATAL VITAMINS W/ FOLIC ACID TABLET (FP) PO SCH (10:42)
[2019-09-08] MEDS: TIOTROPIUM BROMIDE 2.5 MCG (SPIRIVA) RESPIMAT INHALER IH SCH (10:42)
--- NOTE | 2019-09-08 10:48 | PN ---
[facility] CIWA - CIWA Score Nausea/Vomitin-No Nausea/No Vomiting Muscle Tremors: 1-None Visible, but [place] Anxiety: 0-No Anxiety, at Ease Agitation: 1-Slight > Activity Paroxysmal Sweats: No Perspiration Orientation: 0-Oriented Tacttile Disturbances: 0-None Auditory Disturbances: 0-None Visual Disturbances: 0-None Headache: 0-None Present CIWA-Ar Total Score: 2 [facility] COWS - Scale Resting Pulse: 0= [place] 80 or Below Sweatin= Chills/Flushing Restless Observation: 0= Sits Still Pupil Size: 0= Normal to Room Light Bone or Joint Aches: 1= Mild Discomfort Runny Nose/ Eye Tearin= None GI Upset > 30mins: 0= None Tremor Observation of Outstretched Hands: 1= Tremor [place], Not Seen Yawning Observation: 0= None Anxiety or Irritability: 0= None Goose Flesh Skin: 0=Smooth Skin COWS Score: 3 [facility] Progress Note (SOAP) Subjective: tired Objective: 09/08/19 10:48 Vital Signs Temperature 97.3 F L 09/08/19 09:23 Pulse Rate 75 09/08/19 09:23 Respiratory Rate 18 09/08/19 09:23 Blood Pressure 141/85 09/08/19 09:23 O2 Sat by Pulse Oximetry (%) aaox3 ambulating no acute distress Assessment: 09/08/19 10:48 mild withdrawals Plan: d/c in am
[2019-09-08] MEDS: ATORVASTATIN CA 10 MG TABLET (FP) PO SCH (22:25)
[2019-09-09] MEDS ORDERED: chlordiazePOXIDE HCL 10 MG CAPSULE PO ONE (05:00)
[2019-09-09] MEDS ORDERED: METHADONE HCL 5 MG TABLET (FOR DETOX USE ONLY) PO ONE (06:00)
--- NOTE | 2019-09-09 09:16 | DS ---
[facility] Detox Discharge Summary Admission Date: 09/04/19 Discharge Date: 09/09/19 - History Present History: Alcohol Dependence, Cocaine Dependence Additional Comments: Patient successfully completed detox, tolerated well. Follow up with referral to [facility] and see primary care provider upon discharge. - Physical Exam Results Vital Signs: Vital Signs Temperature 98.2 F 09/08/19 21:26 Pulse Rate 64 09/08/19 21:26 Respiratory Rate 18 09/09/19 00:30 Blood Pressure 137/69 09/08/19 21:26 O2 Sat by Pulse Oximetry (%) - Treatment Hospital Course: Detox Protocol Followed, Detoxed Safely, Responded well, Discharged Condition Good, Rehab Referral Accepted Patient has Accepted a Rehab Referral to: [facility] - Medication Discharge Medications: Ambulatory Orders Atorvastatin Ca [Lipitor] 10 mg PO HS 10/20/17 Hydrochlorothiazide [Hctz -] 50 mg PO DAILY 10/20/17 Albuterol Sulfate Inhaler - [Ventolin Hfa Inhaler -] 2 inh PO Q4H PRN 10/21/17 Metoprolol Succinate [Toprol Xl] 1 tab PO DAILY 01/25/19 Ranitidine [Zantac -] 1 tab PO DAILY PRN MDD 2 01/25/19 Tiotropium [place] [Spiriva] 1 cap IH DAILY 01/25/19 Cyanocobalamin [Vitamin B12 -] 1,000 mcg PO DAILY 09/04/19 Meclizine HCl [Antivert -] 12.5 mg PO BID PRN 09/04/19 Mirtazapine [Remeron -] 15 mg PO HS 09/04/19 Thiamine Mononitrate [Vitamin B-1] 100 mg PO DAILY 09/04/19 - Diagnosis (1) Emphysema lung Current Visit: Yes Status: Acute Qualifiers: Emphysema type: unspecified Qualified Code(s): J43.9 - Emphysema, unspecified (2) Low back pain potentially associated with spinal stenosis Current Visit: Yes Status: Acute (3) DM2 (diabetes mellitus, type 2) Current Visit: Yes Status: Chronic Qualifiers: Diabetes mellitus complication status: without complication (4) GERD (gastroesophageal reflux disease) Current Visit: Yes Status: Chronic Qualifiers: Esophagitis presence: without esophagitis Qualified Code(s): K21.9 - Gastro -esophageal reflux disease without esophagitis (5) HTN (hypertension) Current Visit: Yes Status: Chronic Qualifiers: Hypertension type: essential hypertension Qualified Code(s): I10 - Essential (primary) hypertension (6) Nicotine dependence Current Visit: No Status: Chronic Qualifiers: Nicotine product type: cigarettes Substance use status: uncomplicated Qualified Code(s): F17.210 - Nicotine dependence, cigarettes, uncomplicated (7) Opioid dependence with withdrawal Current Visit: Yes Status: Chronic - AMA Did Patient Leave Against Medical Advice: No
[2019-09-09] MEDS: THIAMINE HCL 100 MG TABLET (FP) PO SCH (10:48)
[2019-09-09] MEDS: FAMOTIDINE 20 MG TABLET PO SCH (10:48)
[2019-09-09] MEDS: HYDROCHLOROTHIAZIDE 25 MG TABLET (FP) PO SCH (10:48)
[2019-09-09] MEDS: CYANOCOBALAMIN 1,000 MCG TABLET (FP) PO SCH (10:48)
[2019-09-09] MEDS: NICOTINE 14 MG/24 HOURS TOPICAL PATCH TD SCH (10:48)
[2019-09-09] MEDS: metoPROLOL SUCCINATE 25 MG TAB.SR.24H (FP) PO SCH (10:48)
[2019-09-09] MEDS: TIOTROPIUM BROMIDE 2.5 MCG (SPIRIVA) RESPIMAT INHALER IH SCH (10:48)
[2019-09-09] MEDS: PRENATAL VITAMINS W/ FOLIC ACID TABLET (FP) PO SCH (10:48)
[2019-09-09 14:25] VITALS: BP 160/88; PULSE 66; TEMP 98.1
== END 2019-09-09 14:30 | disposition home or self-care (01) | DRG 897 ==
LOC: YASAS 12:18 → Y6N 15:07
PROVIDERS: ADMIT Allergy & Immunology; ATTEND Allergy & Immunology
PROC: HZ2ZZZZ Detoxification Services for Substance Abuse Treatment (ICD-10-PCS; principal; 2019-09-04)
DX: F11.23 Opioid dependence with withdrawal (principal); F14.20 Cocaine dependence, uncomplicated; F10.230 Alcohol dependence with withdrawal, uncomplicated; F17.210 Nicotine dependence, cigarettes, uncomplicated; J43.9 Emphysema, unspecified; M54.5 Low back pain; E11.22 Type 2 diabetes mellitus with diabetic chronic kidney disease; I12.9 Hypertensive chronic kidney disease with stage 1 through stage 4 chronic kidney disease, or unspecified chronic kidney disease; N18.9 Chronic kidney disease, unspecified; K21.9 Gastro-esophageal reflux disease without esophagitis; E78.00 Pure hypercholesterolemia, unspecified; R79.89 Other specified abnormal findings of blood chemistry; Z88.2 Allergy status to sulfonamides
CPT/HCPCS: 36415; 71045-TC-FY; 80048; 80053; 81025; 82962; 85027; 86593; 93005; 93010